=== PATIENT | female | born 1940 | race Caucasian/White ===

== ENCOUNTER 2018-12-09 21:36 | Observation (INO) | payer BC, OTHER ==
[~2018-12-09] VITALS: Ht 162.6 cm; Wt 67.2 kg
--- NOTE | 2018-12-09 21:50 | ED Chest Pain ---
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 States it was across her chest and she had associated diaphoresis. Took 4 baby ASA HOSPITAL HOUSEKEEPER. States her BP @ home was high. Currently states her pain is much better and rates it 2/10 Says she has been having episodes of chest pain the last 2 days, but nothing like tonight. The pain was not similar to any of her previous NH's. Has an extensive cardiac hx including a CABG > 20 years ago @ [facility]. Reports multiple cardiac stents. Timing/Duration: other (just HOSPITAL HOUSEKEEPER; improved now) Severity/Quality: severe, other (describes it like a muscle spasm across her chest) Location: other (across chest) Radiation: no radiation Activities at Onset: none Prior CP/Workup: cardiac cath, echocardiography, heart attack, other (CABG) Modifying Factors: improves with rest, improves with other (ASA) ASA po HOSPITAL HOUSEKEEPER: Yes NTG SL HOSPITAL HOUSEKEEPER: No Associated Symptoms: denies symptoms (x/ as noted.), diaphoresis, fatigue Allergies and Home Medications Allergies Coded Allergies: meperidine (Verified Allergy, Unknown, 12/09/18) Uncoded Allergies: PCN (Allergy, Unknown, 12/09/18) TAPE (Allergy, Unknown, 12/09/18) Patient Home Medication List Home Medication List Reviewed: Yes Review of Systems Review of Systems Constitutional: see HPI, diaphoresis, malaise Cardiovascular: See HPI, Chest Pain All Other Systems Reviewed Negative Unless Noted: Yes (Negative excepted noted.) Past Pgykgoo-Ubqwww-Nagafg Hx Patient Social History Recent Foreign Travel: No Contact w/Someone Who Travel: No Physical Exam Vital Signs Vital Signs - First Documented 12/09/18 21:40 Temp 97.1 Pulse 76 B/P (MAP) 208/84 (125) O2 Delivery Room Air Capillary Refill : Height, Weight, BMI Height: '" Weight: lbs. oz. kg; BMI Method: General Appearance: No Apparent Distress, WD/WN HEENT: Normal ENT Inspection Neck: Normal Inspection Respiratory: No Respiratory Distress Cardiovascular: Regular Rate, Rhythm Rectal: Deferred Neurologic/Psychiatric: Alert, Oriented x3, No Motor/Sensory Deficits Skin: Warm/Dry Progress/Results/Core Measures Results/Orders Lab Results Laboratory Tests Test 12/09/18 21:40 12/09/18 22:04 12/09/18 23:45 Range/Units White Blood Count 10.9 4.3-11.0 10^3/uL Red Blood Count 5.27 4.35-5.85 10^6/uL Hemoglobin 15.9 11.5-16.0 G/DL Hematocrit 47 35-52 % Mean Corpuscular Volume 89 80-99 FL Mean Corpuscular Hemoglobin 30 25-34 PG Mean Corpuscular Hemoglobin Concent 34 32-36 G/DL Red Cell Distribution Width 14.6 H 10.0-14.5 % Platelet Count 254 130-400 10^3/uL Mean Platelet Volume 11.6 H 7.4-10.4 FL Neutrophils (%) (Auto) 63 42-75 % Lymphocytes (%) (Auto) 23 12-44 % Monocytes (%) (Auto) 9 0-12 % Eosinophils (%) (Auto) 4 0-10 % Basophils (%) (Auto) 1 0-10 % Neutrophils # (Auto) 6.9 1.8-7.8 X 10^3 Lymphocytes # (Auto) 2.5 1.0-4.0 X 10^3 Monocytes # (Auto) 1.0 0.0-1.0 X 10^3 Eosinophils # (Auto) 0.5 H 0.0-0.3 10^3/uL Basophils # (Auto) 0.1 0.0-0.1 10^3/uL Sodium Level 138 135-145 MMOL/L Potassium Level 4.1 3.6-5.0 MMOL/L Chloride Level 99 98-107 MMOL/L Carbon Dioxide Level 23 21-32 MMOL/L Anion Gap 16 H 5-14 MMOL/L Blood Urea Nitrogen 13 7-18 MG/DL Creatinine 1.19 0.60-1.30 MG/DL Estimat Glomerular Filtration Rate 44 BUN/Creatinine Ratio 11 Glucose Level 122 H 70-105 MG/DL Calcium Level 10.0 8.5-10.1 MG/DL Corrected Calcium 9.6 8.5-10.1 MG/DL Magnesium Level 2.1 1.8-2.4 MG/DL Total Bilirubin 0.2 0.1-1.0 MG/DL Aspartate Amino Transf (AST/SGOT) 21 5-34 U/L Alanine Aminotransferase (ALT/SGPT) 17 0-55 U/L Alkaline Phosphatase 88 40-136 U/L Troponin T 10 15 H <=10 NG/L Pro-B-Type Natriuretic Peptide 307.9 H <75.0 PG/ML Total Protein 7.7 6.4-8.2 GM/DL Albumin 4.5 3.2-4.5 GM/DL Lipase 79 H 8-78 U/L Urine Color YELLOW Urine Clarity CLEAR Urine pH 6.5 5-9 Urine Specific [place] <1.005 1.016-1.022 Urine Protein NEGATIVE NEGATIVE Urine Glucose (UA) NEGATIVE NEGATIVE Urine Ketones NEGATIVE NEGATIVE Urine Nitrite NEGATIVE NEGATIVE Urine Bilirubin NEGATIVE NEGATIVE Urine Urobilinogen 0.2 NORMAL MG/DL Urine Leukocyte Esterase NEGATIVE NEGATIVE Urine RBC (Auto) NEGATIVE NEGATIVE Urine RBC RARE /HPF Urine WBC 2-5 /HPF Urine Squamous Epithelial Cells 0-2 /HPF Urine Crystals NONE /LPF Urine Bacteria NONE /HPF Urine Casts NONE /LPF Urine Mucus NEGATIVE /LPF Urine Culture Indicated NO My Orders Orders - SHAHBAZ DOS SANTOS DO Ed Iv/Invasive Line Start (12/09/18 21:50) Ekg Tracing (12/09/18 21:50) Cbc With Automated Diff (12/09/18 21:50) Comprehensive Metabolic Panel (12/09/18 21:50) Lipase (12/09/18 21:50) Magnesium (12/09/18 21:50) Ua Culture If Indicated (12/09/18 21:50) Troponin T (12/09/18 21:50) Probnp Fs (12/09/18 21:50) Chest 1 View Ap/Pa Only (12/09/18 21:50) Troponin T (12/09/18 23:30) Nitroglycerin Ointment (Nitrobid Ointme (12/10/18 00:45) Enoxaparin Injection (Lovenox Injection) (12/10/18 00:45) Vital Signs/I&O 12/09/18 12/09/18 21:40 22:04 Temp 97.1 Pulse 76 B/P (MAP) 208/84 (125) 119/81 (94) O2 Delivery Room Air Initial ECG Impression Date: Dec 09, 2018 Initial ECG Impression Time: 21:50 Initial ECG Rate: 69 Initial ECG Rhythm: Normal Sinus Initial ECG Intervals: Normal Initial ECG Impression: Normal Initial ECG Comparisson: No Previous ECG Available Diagnostic Imaging Diagonstic Imaging: Xray Plain Films/CT/US/NM/MRI: chest (nothing acute) Departure Impression Primary Impression: Chest pain Additional Impressions: Elevated troponin Labile hypertension Disposition: ADMITTED INPATIENT Condition: Improved Admissions Decision to Admit Reason: Admit from ER (General) Decision to Admit/Date: Dec 10, 2018 Time/Decision to Admit Time: 00:25 Transfer Time Spoke to Accepting Phy: 00:25 Transfer Progress Notes Discussed c/ Dr. Olguin who requested the patient be admitted to the Hospitalist service c/ him to consult. Dr. Mason notified and accepted the patient in transfer for admission. Transfer Facility: [facility] Method of Transfer: EMS Departure-Patient Inst. Referrals: NO,LOCAL PHYSICIAN (PCP) Primary Care Physician SHAHBAZ DOS SANTOS DO Dec 09, 2018 21:50
--- NOTE | 2018-12-09 21:58 | NUR ---
PT. REPORTED SHE HAS HAD CHEST PAIN FOR A COUPLE OF DAYS. SHE STATED SHE IS TIRED, HAS HAD OPEN HEART SURGERY AND 8 STINTS PLACED SHE ALSO SAID SHE TOOK AN ASA AT HOME.
--- NOTE | 2018-12-09 22:01 | NUR ---
PT. REPORTED SHE USE TO HAVE A GUT DROPPER IN [facility] BUT IF ADMITTED TO THE HOSPITAL SHE WANTS TO GO TO [facility] IN [place].
[2018-12-09 22:02] LABS: BASOPHILS # (AUTO) 0.1 10^3/uL (0.0-0.1); BASOPHILS % (AUTO) 1 % (0-10); EOSINOPHILS # (AUTO) 0.5 10^3/uL (0.0-0.3); EOSINOPHILS % (AUTO) 4 % (0-10); HEMATOCRIT 47 % (35-52); HEMOGLOBIN 15.9 G/DL (11.5-16.0); LYMPHOCYTES # (AUTO) 2.5 X 10^3 (1.0-4.0); LYMPHOCYTES % (AUTO) 23 % (12-44); MEAN CORPUSCULAR HEMOGLOBIN 30 PG (25-34); MEAN CORPUSCULAR HGB CONC 34 G/DL (32-36); MEAN CORPUSCULAR VOLUME 89 FL (80-99); MEAN PLATELET VOLUME 11.6 FL (7.4-10.4); MONOCYTES % (AUTO) 9 % (0-12); NEUTROPHILS # (AUTO) 6.9 X 10^3 (1.8-7.8); NEUTROPHILS % (AUTO) 63 % (42-75); PLATELET COUNT 254 10^3/uL (130-400); RED CELL DISTRIBUTION WIDTH 14.6 % (10.0-14.5); WHITE BLOOD COUNT 10.9 10^3/uL (4.3-11.0)
[2018-12-09 22:04] VITALS: BP 119/81
--- NOTE | 2018-12-09 22:12 | NUR ---
DOCTOR LEVON IN TO SEE THE PATIENT.
[2018-12-09 22:15] LABS: BILIRUBIN,URINE NEGATIVE (NEGATIVE); CLARITY,URINE CLEAR; COLOR,URINE YELLOW; GLUCOSE, URINE (UA) NEGATIVE (NEGATIVE); KETONES,URINE NEGATIVE (NEGATIVE); NITRITE,URINE NEGATIVE (NEGATIVE); PH,URINE 6.5 (5-9); PROTEIN,URINE NEGATIVE (NEGATIVE)
[2018-12-09 22:16] LABS: LEUKOCYTE ESTERASE ,URINE NEGATIVE (NEGATIVE); RBC,URINE RARE /HPF; SQUAMOUS EPITHELIAL CELL,UR 0-2 /HPF; UROBILINOGEN,URINE 0.2 MG/DL (NORMAL)
[2018-12-09 22:16] LABS: BILIRUBIN,TOTAL 0.2 MG/DL (0.1-1.0); CREATININE SERUM 1.19 MG/DL (0.60-1.30); MAGNESIUM 2.1 MG/DL (1.8-2.4); POTASSIUM 4.1 MMOL/L (3.6-5.0)
[2018-12-09 22:17] LABS: ALBUMIN 4.5 GM/DL (3.2-4.5); TOTAL PROTEIN 7.7 GM/DL (6.4-8.2)
--- NOTE | 2018-12-09 23:47 | NUR ---
2ND TROP. SENT TO LAB
[2018-12-10] VITALS (11 sets, daily range): BP systolic 115–185; BP diastolic 58–85
--- NOTE | 2018-12-10 00:19 | Diagnostic Imaging Report ---
INDICATION: Chest pain. Frontal chest obtained at 9:49 p.m. FINDINGS: There is poststernotomy change. The heart is top limits of normal in size. There is no focal infiltrate or pneumothorax or pleural fluid. There is no sign of edema. IMPRESSION: Poststernotomy changes with no acute process in the chest. Dictated by: Dictated on workstation # [id number]
[2018-12-10] MEDS ORDERED: ENOXAPARIN 80 MG/0.8 ML (LOVENOX) SYR SC ONE (00:45)
[2018-12-10] MEDS ORDERED: NITROGLYCERIN 2% OINT 1 GM UNIT DOSE PACKET TOP ONE (00:45)
--- NOTE | 2018-12-10 01:50 | NUR ---
BAY FRANCO admitted to room 408-1, with an admitting diagnosis of CHEST PAIN AND ELEVATED TROPONIN, on 12/10/18 from [facility], accompanied by lance crewmember.BAY FRANCO introduced to surroundings, call light, bed controls, phone, TV, temperature control, lights, meal times, smoking policy, visitor policy, side rail policy, bathrooms and showers.
[2018-12-10] MEDS ORDERED: NITROGLYCERIN 0.4 MG SL TABS BTL 25'S SL PRN (02:30)
[2018-12-10] MEDS ORDERED: morphine INJ 4 MG/ML 1 ML (VIAL/SYRINGE) IV PRN (02:30)
[2018-12-10] MEDS ORDERED: NS IV 1000 ML 1,000 ML IV SCH (02:30)
[2018-12-10] MEDS ORDERED: REGADENOSON 0.4 MG/5 ML SYR (LEXISCAN) IV ONE ×2 (08:30→08:46)
[2018-12-10] MEDS ORDERED: CHOL10007 PO (08:34)
[2018-12-10] MEDS ORDERED: ASPI-983 PO (08:34)
[2018-12-10] MEDS ORDERED: VITA40TA PO (08:34)
[2018-12-10] MEDS ORDERED: MULT1TAB69 PO (08:34)
[2018-12-10] MEDS ORDERED: GREEN DRINK PO (08:34)
--- NOTE | 2018-12-10 08:34 | NUR ---
SPOKE WITH THE PATIENT ABOUT HER MEDICATIONS. SHE STATES SHE IS NOT CURRENTLY TAKING ANY PRESCRIPTION MEDICATIONS AT THIS TIME. SHE WAS TOLD TO TAKE A STATIN BUT AFTER READING ABOUT THEM STOPPED, SHE STATES SHE HAS NOT TAKEN IT FOR THE PAST 3 YEARS OR SO. SHE DOES TAKE THE FOLLOWING OTC: ASPIRIN 81MG DAILY VITAMIN K2 DAILY VITAMIN D DAILY MTV DAILY GREENS DRINK DAILY
[2018-12-10] MEDS ORDERED: CATHETER FLUSH 10 ML SYR IV PRN (08:45)
--- NOTE | 2018-12-10 08:54 | Consultation-Cardiology ---
HPI-Cardiology Cardiology Consultation Date of Consultation 12/10/18 Date of Admission Time Seen by Provider: 08:49 Indication: chest pain HPI 78 years old lady with extensive cardiac history, did not have any checkup for the past 5 years, was in her usual state of health until yesterday evening when she had sudden onset severe chest pain in the retrosternal area, became diaphore tic, was severely hypertensive. Did not have a similar episode recently. Came into the emergency room, given nitroglycerin and she is feeling better. No further episode of chest pain, has been fairly active with no significant chest pain. No palpitation. No syncope or near syncopal episodes. Home Medications & Allergies Allergies: Coded Allergies: meperidine (Verified Allergy, Unknown, 12/09/18) Uncoded Allergies: PCN (Allergy, Unknown, 12/09/18) TAPE (Allergy, Unknown, 12/09/18) Home Medication List Reviewed: Yes VTX-Lrflep-Rvvgmh Hx Patient Social History Marital Status: Employed/Student: retired Alcohol Use: Denies Use Smoking Status: Former Smoker (stopped smoking 25 years ago) Recent Foreign Travel: No Recent Infectious Disease Expo: No Past Medical History discussed below Family Medical History Family History: Alcoholism G8 BROTHER Cardiovascular disease 19 MOTHER FHx: cancer 19 FATHER FHx: lung cancer G8 BROTHER Review of Systems-General Review of Systems Constitutional: see HPI, diaphoresis, malaise EENTM: see HPI, no symptoms reported Respiratory: see HPI; No cough; dyspnea on exertion; No hemoptysis, No orthopnea, No phlegm, No short of breath, No stridor, No wheezing, No other Cardiovascular: No see HPI; chest pain; No edema, No Hx of Intervention, No palpitations, No syncope, No vascular heart diseas, No other Gastrointestinal: no symptoms reported, see HPI Genitourinary: no symptoms reported, see HPI Musculoskeletal: no symptoms reported, see HPI Skin: no symptoms reported, see HPI Psychiatric/Neurological: No Symptoms Reported, See HPI All Other Systems Reviewed Negative Unless Noted: Yes (Negative excepted noted.) Reviewed Test Results Reviewed Test Results Lab Laboratory Tests Test 12/09/18 21:40 12/09/18 22:04 12/09/18 23:45 12/10/18 03:00 Range/Units White Blood Count 10.9 4.3-11.0 10^3/uL Red Blood Count 5.27 4.35-5.85 10^6/uL Hemoglobin 15.9 11.5-16.0 G/DL Hematocrit 47 35-52 % Mean Corpuscular Volume 89 80-99 FL Mean Corpuscular Hemoglobin 30 25-34 PG Mean Corpuscular Hemoglobin Concent 34 32-36 G/DL Red Cell Distribution Width 14.6 H 10.0-14.5 % Platelet Count 254 130-400 10^3/uL Mean Platelet Volume 11.6 H 7.4-10.4 FL Neutrophils (%) (Auto) 63 42-75 % Lymphocytes (%) (Auto) 23 12-44 % Monocytes (%) (Auto) 9 0-12 % Eosinophils (%) (Auto) 4 0-10 % Basophils (%) (Auto) 1 0-10 % Neutrophils # (Auto) 6.9 1.8-7.8 X 10^3 Lymphocytes # (Auto) 2.5 1.0-4.0 X 10^3 Monocytes # (Auto) 1.0 0.0-1.0 X 10^3 Eosinophils # (Auto) 0.5 H 0.0-0.3 10^3/uL Basophils # (Auto) 0.1 0.0-0.1 10^3/uL Sodium Level 138 135-145 MMOL/L Potassium Level 4.1 3.6-5.0 MMOL/L Chloride Level 99 98-107 MMOL/L Carbon Dioxide Level 23 21-32 MMOL/L Anion Gap 16 H 5-14 MMOL/L Blood Urea Nitrogen 13 7-18 MG/DL Creatinine 1.19 0.60-1.30 MG/DL Estimat Glomerular Filtration Rate 44 BUN/Creatinine Ratio 11 Glucose Level 122 H 70-105 MG/DL Calcium Level 10.0 8.5-10.1 MG/DL Corrected Calcium 9.6 8.5-10.1 MG/DL Magnesium Level 2.1 1.8-2.4 MG/DL Total Bilirubin 0.2 0.1-1.0 MG/DL Aspartate Amino Transf (AST/SGOT) 21 5-34 U/L Alanine Aminotransferase (ALT/SGPT) 17 0-55 U/L Alkaline Phosphatase 88 40-136 U/L Troponin T 10 15 H <=10 NG/L Pro-B-Type Natriuretic Peptide 307.9 H <75.0 PG/ML Total Protein 7.7 6.4-8.2 GM/DL Albumin 4.5 3.2-4.5 GM/DL Lipase 79 H 8-78 U/L Urine Color YELLOW Urine Clarity CLEAR Urine pH 6.5 5-9 Urine Specific [place] <1.005 1.016-1.022 Urine Protein NEGATIVE NEGATIVE Urine Glucose (UA) NEGATIVE NEGATIVE Urine Ketones NEGATIVE NEGATIVE Urine Nitrite NEGATIVE NEGATIVE Urine Bilirubin NEGATIVE NEGATIVE Urine Urobilinogen 0.2 NORMAL MG/DL Urine Leukocyte Esterase NEGATIVE NEGATIVE Urine RBC (Auto) NEGATIVE NEGATIVE Urine RBC RARE /HPF Urine WBC 2-5 /HPF Urine Squamous Epithelial Cells 0-2 /HPF Urine Crystals NONE /LPF Urine Bacteria NONE /HPF Urine Casts NONE /LPF Urine Mucus NEGATIVE /LPF Urine Culture Indicated NO Troponin I 0.032 H <0.028 NG/ML Physical Exam Physical Exam Vital Signs Vital Signs - First Documented 12/09/18 12/10/18 21:40 00:32 Temp 97.1 Pulse 76 Resp 18 B/P (MAP) 208/84 (125) Pulse Ox 97 O2 Delivery Room Air O2 Flow Rate 2.00 Capillary Refill : Less Than 3 Seconds Height, Weight, BMI Height: 5'4.00" Weight: 148lbs. 3.0oz. 67.329234ip; BMI Method:Stated General Appearance: No Apparent Distress, WD/WN HEENT: TMs Normal, Normal ENT Inspection Neck: Full Range of Motion, Normal Inspection Respiratory: Chest Non Tender, Lungs Clear, No Respiratory Distress Cardiovascular: Regular Rate, Rhythm, No Murmur, Normal Peripheral Pulses, Gal lop/S3 Gastrointestinal: Normal Bowel Sounds, No Organomegaly Rectal: Deferred Back: Normal Inspection Extremity: Normal Capillary Refill, Normal Inspection Neurologic/Psychiatric: Alert, Oriented x3, No Motor/Sensory Deficits Skin: Normal Color, Warm/Dry Lymphatic: No Adenopathy A/P-Cardiology Admission Diagnosis Unstable angina Coronary artery disease Hypertension Hyperlipidemia Assessment/Plan Unstable angina, better at this time, cardiac enzymes are negative. EKG did not show any acute changes. Planning to evaluate stress test. Coronary artery disease history of CABG 3 done 25 years ago, multiple interventions in the past reporting a total of 8 stents, last cardiac cat heterization was done about 5 years ago and was complicated by a large retroperitoneal bleed, patient is hesitant to have any procedure done especially from the right groin. No recent cardiac workup, planning to evaluate stress test. Next Hypertension, had an episode of elevated blood pressure over 200 while she was having the chest pain at home, currently blood pressure is better. Continue to monitor blood pressure Hyperlipidemia, monitor lipids. History of peripheral arterial disease, reporting history of aortic stent and iliac stents done in the remote past. No recent workup was done. Clinical Quality Measures AMI/AHF: ASA po Prior to arrival: Yes DVT/VTE Risk/Contraindication: Risk Factor Score Per Nursin RFS Level Per Nursing on Admit: 2=Moderate Other: SEE INTERVENTIONS JESSE KHANNA MD Dec 10, 2018 08:54
[2018-12-10] MEDS ORDERED: ASPIRIN E.C. 81 MG (ECOTRIN) TAB PO SCH (09:00)
--- NOTE | 2018-12-10 15:00 | History & Physical-Hospitalist ---
History of Present Illness HPI/Chief Complaint The patient is a 78-year-old white female who was transferred down from the [facility] emergency room. She had presented there with the onset of significant chest pain all sitting at rest. She described this chest pain as anterior without radiation to the arms. She has a long cardiac history going back at least 25 years. 25 years ago she had emergent coronary bypass surgery and repair of an arterial aneurysm. She had a 2 phase complication following the surgery which included a hemopneumothorax. Through the subsequent years she has had EIGHT more stents. She reported that during the period of chest pain she also had diaphoresis. She took aspirin at home and by the time she reached the emergency room rated her pain has only mild. Date Seen 12/10/18 Time Seen by a Provider: 15:00 Attending Physician Neville Lewis MD PCP No,Local Physician Referring Physician Date of Admission Dec 10, 2018 at 00:33 Home Medications & Allergies Home Medications Reviewed patient Home Medication Reconciliation performed by pharmacy medication reconciliations operator technician and/or nursing. Patients Allergies have been reviewed. Allergies Allergies Coded Allergies meperidine (Verified Allergy, Unknown, 12/09/18) Uncoded Allergies PCN ( Allergy, Unknown, 12/09/18) TAPE ( Allergy, Unknown, 12/09/18) Past Nahscwn-Lnqeiv-Esdlri Hx Past Med/Social Hx: Reviewed Nursing Past Med/Soc Hx Patient Social History Marrital Status: Employed/Student: retired Alcohol Use: Denies Use Smoking Status: Former Smoker (stopped smoking 25 years ago) Recent Foreign Travel: No Contact w/other who traveled: No Recent Infectious Disease Expo: No Past Medical History : No Family History Alcoholism G8 BROTHER Cardiovascular disease 19 MOTHER FHx: cancer 19 FATHER FHx: lung cancer G8 BROTHER Review of Systems Constitutional: see HPI EENTM: no symptoms reported Respiratory: no symptoms reported Cardiovascular: see HPI, chest pain Gastrointestinal: no symptoms reported Genitourinary: no symptoms reported Musculoskeletal: no symptoms reported Skin: no symptoms reported Psychiatric/Neurological: No Symptoms Reported Physical Exam Physical Exam Vital Signs Vital Signs - First Documented 12/09/18 12/10/18 21:40 00:32 Temp 97.1 Pulse 76 Resp 18 B/P (MAP) 208/84 (125) Pulse Ox 97 O2 Delivery Room Air O2 Flow Rate 2.00 Capillary Refill : Less Than 3 Seconds Height, Weight, BMI Height: 5'4.00" Weight: 148lbs. 3.0oz. 67.043387ld; BMI Method:Stated General Appearance: No Apparent Distress, Other (appears somewhat younger than stated age) Eyes: Bilateral Eye Normal Inspection HEENT: Normal ENT Inspection Respiratory: Chest Non Tender, Lungs Clear, Normal Breath Sounds, No Accessory Muscle Use, No Respiratory Distress Cardiovascular: Regular Rate, Rhythm, No Edema, No Gallop, Other (sternotomy scar noted) Gastrointestinal: Normal Bowel Sounds, No Organomegaly, No Pulsatile Mass Back: Normal Inspection Extremity: Normal Capillary Refill, Normal Inspection, Normal Range of Motion, Non Tender, No Calf Tenderness, No Pedal Edema Neurologic/Psychiatric: Alert, Oriented x3, No Motor/Sensory Deficits, Normal Mood/Affect Skin: Normal Color, Warm/Dry Lymphatic: No Adenopathy Results Results/Procedures Labs Laboratory Tests 12/09/18 21:40 Patient resulted labs reviewed. Assessment/Plan Admission Diagnosis 1. Chest pain consistent with angina pectoris. 2.long history of coronary artery disease with previous coronary bypass grafting, repair of aneurysm, and 8 percutaneous stents Clinical Quality Measures AMI/AHF: ASA po Prior to arrival: Yes DVT/VTE Risk/Contraindication: Risk Factor Score Per Nursin RFS Level Per Nursing on Admit: 2=Moderate Other: SEE INTERVENTIONS NEVILLE LEWIS MD Dec 10, 2018 15:00
[2018-12-10] MEDS ORDERED: ATOR10TA PO (15:17)
[2018-12-10] MEDS ORDERED: METO-351 PO (15:17)
--- NOTE | 2018-12-10 17:04 | STRESS TEST ---
DATE OF SERVICE: 12/10/2018 LEXISCAN MYOVIEW STRESS TEST REFERRING PHYSICIAN: Neville Mason MD Baseline heart rate is 65, baseline blood pressure 130/70. Baseline EKG is sinus rhythm with no ischemic changes. In summary, the patient was injected with 9.93 mCi of technetium-99 Myoview and the resting images were obtained. Then, the patient received 0.4 mg of Lexiscan followed by 29.4 mCi of technetium-99 Myoview. Throughout the test, there were no EKG changes. The resting and stress images were reviewed and compared in the short axis, horizontal long axis and vertical long axis views. Review of the images showed motion artifact affecting the quality of the images. There is fixed defect involving the whole inferior wall and inferolateral wall with no significant reversibility. SSS is 20, SDS is 3, TID value 1.1. On the gated images, the left ventricle appeared to be in normal size with normal contractility. There is no segmental wall motion abnormality. Inferior wall is eric normally. Calculated ejection fraction 73%. CONCLUSION: 1. The patient tolerated Lexiscan well. 2. Diaphragmatic attenuation affecting the quality of the images with motion artifact with fixed defect involving the whole inferior wall and inferoseptum with no significant reversibility. 3. Normal left ventricular size with normal contractility. The inferior wall is eric normally. Calculated ejection fraction 73%. Job ID: [id number] DocumentID: [id number] Dictated Date: 12/10/2018 16:48:47 Internal Medicine Veterinary Technician Date: 12/10/2018 17:03:22 Dictated By: JESSE KHANNA MD
== END 2018-12-10 16:30 | disposition home or self-care (01) ==
LOC: ER FS 21:37 → 4TH 12-10 00:33
PROVIDERS: ADMIT Internal Medicine; ATTEND Internal Medicine
DX: I25.110 Atherosclerotic heart disease of native coronary artery with unstable angina pectoris (principal); I10 Essential (primary) hypertension; E78.5 Hyperlipidemia, unspecified; I25.2 Old myocardial infarction; Z87.891 Personal history of nicotine dependence; Z95.1 Presence of aortocoronary bypass graft; Z95.5 Presence of coronary angioplasty implant and graft; Z95.820 Peripheral vascular angioplasty status with implants and grafts; Z79.82 Long term (current) use of aspirin; Z79.899 Other long term (current) drug therapy
CPT/HCPCS: 36415; 71045; 78452; 80053; 81000; 83690; 83735; 83880; 84484; 85025; 93005; 93017; 96372; G0378

== ENCOUNTER 2018-12-11 10:02 | Observation (INO) | payer BC, MEDICARE ==
[~2018-12-11] VITALS: Ht 162.6 cm; Wt 67.3 kg
[2018-12-11] VITALS (7 sets, daily range): BP systolic 114–144; BP diastolic 65–89
[~2018-12-11 10:02] MED LIST: ASPI-983 PO; ATOR10TA PO; CHOL10007 PO; GREEN DRINK PO; METO-351 PO; MULT1TAB69 PO; VITA40TA PO
[2018-12-11] MEDS ORDERED: morphine INJ 10 MG/ML 1ML (SYR OR VIAL) IVP STA ×2 (10:07→10:41)
[2018-12-11] MEDS ORDERED: ASPIRIN 81 MG CHEW (CHILDREN'S ASA) PO ONE (10:15)
[2018-12-11] MEDS: NITROGLYCERIN 0.4 MG SL TABS BTL 25'S SL PRN ×2 (10:17→10:37)
[2018-12-11 10:22] LABS: HEMOGLOBIN 17.2 G/DL (11.5-16.0); MEAN CORPUSCULAR HEMOGLOBIN 30 PG (25-34)
[2018-12-11 10:23] LABS: BASOPHILS # (AUTO) 0.1 10^3/uL (0.0-0.1); BASOPHILS % (AUTO) 1 % (0-10); EOSINOPHILS # (AUTO) 0.4 10^3/uL (0.0-0.3); EOSINOPHILS % (AUTO) 4 % (0-10); HEMATOCRIT 50 % (35-52); LYMPHOCYTES # (AUTO) 3.4 X 10^3 (1.0-4.0); LYMPHOCYTES % (AUTO) 28 % (12-44); MEAN CORPUSCULAR HGB CONC 35 G/DL (32-36); MEAN CORPUSCULAR VOLUME 88 FL (80-99); MEAN PLATELET VOLUME 11.7 FL (7.4-10.4); MONOCYTES # (AUTO) 1.2 X 10^3 (0.0-1.0); MONOCYTES % (AUTO) 10 % (0-12); NEUTROPHILS # (AUTO) 6.9 X 10^3 (1.8-7.8); NEUTROPHILS % (AUTO) 58 % (42-75); PLATELET COUNT 274 10^3/uL (130-400)
--- NOTE | 2018-12-11 10:25 | ED Chest Pain ---
General Chief Complaint: Chest Pain Stated Complaint: CHEST PAIN Nursing Triage Note: started having severe chest pain prior to arrival. Pain is on left and right side of chest and radiates to back. Patient is crying and states it is rated at 10/10. Hx of triple bypass and LA approx 20 years ago. Nursing Sepsis Screen: No Definite Risk History of Present Illness Date Seen by Provider: Dec 11, 2018 Time Seen by Provider: 10:00 Initial Comments The patient is a 78-year-old female with a history of hypertension, hyperlipidemia and coronary artery disease status post CABG in the remote past. She was actually seen here and transferred to [facility] yesterday for chest discomfort which had resolved by the time of presentation to the emergency department. She did have a stress test that was nonischemic and was ruled out with serial troponins. Unfortunately today she returns with acute onset of severe pressure-like substernal chest discomfort which she states involves her entire chest and radiates straight through to the back. She is rolling on the examination bed in significant discomfort and crying. Vital signs are generally appropriate aside from hypertension with a systolic of 180 and tachycardia to 110s. Patient states discomfort started 30 minutes prior to arrival and gradually worsened and that nothing seems to make it better or worse. As noted, she is in quite severe distress. She reports associated shortness of breath. She denies vomiting, diaphoresis, cough, abdominal pain. Initial EKG reviewed and does not show STEMI. Allergies and Home Medications Allergies Coded Allergies: meperidine (Verified Allergy, Unknown, 12/09/18) Uncoded Allergies: PCN (Allergy, Unknown, 12/09/18) TAPE (Allergy, Unknown, 12/09/18) Home Medications Aspirin 81 Mg Tablet.dr, 81 MG PO DAILY, (Reported) Atorvastatin Calcium 10 Mg Tablet, 10 MG PO DAILY Prescribed by: JESSE KHANNA on 12/10/18 151 Cholecalciferol (Vitamin D3) 1,000 Unit Capsule, 1,000 UNIT PO DAILY, (Reported) Metoprolol Succinate 25 Mg Tab.er.24h, 25 MG PO DAILY Prescribed by: JESSE KHANNA on 12/10/18 151 Multivitamin 1 Each Tablet, 1 TAB PO DAILY, (Reported) Patient Home Medication List Home Medication List Reviewed: Yes Review of Systems Review of Systems Constitutional: see HPI All Other Systems Reviewed Negative Unless Noted: Yes Past Slxndgv-Vuafcf-Lnqfyf Hx Past Med/Social Hx: Reviewed Nursing Past Med/Soc Hx Patient Social History Recent Foreign Travel: No Contact w/Someone Who Travel: No Recent Infectious Disease Expo: No Family Medical History Reviewed Nursing Family Hx Alcoholism G8 BROTHER Cardiovascular disease 19 MOTHER FHx: cancer 19 FATHER FHx: lung cancer G8 BROTHER Physical Exam Vital Signs Vital Signs - First Documented 12/11/18 12/11/18 10:03 10:05 Temp 98.6 Pulse 109 Resp 26 B/P (MAP) 116/91 (99) Pulse Ox 98 O2 Delivery Nasal Cannula O2 Flow Rate 2.0 Capillary Refill : Less Than 3 Seconds Height, Weight, BMI Height: 5'4.00" Weight: 150lbs. 3.0oz. [id number]; BMI Method:Stated General Appearance: No Apparent Distress Other comments This is an elderly female appearing to be in some distress although nontoxic in appearance. She is tearful and moaning on the examination bed, complaining about pain in her chest. Head is normocephalic and atraumatic. Neck is supple and nontender. Oropharynx is moist. Lungs are clear to auscultation at all stations. There is a normal S1 and S2 without rubs or gallops and capillary refills appropriate, less than 2 seconds globally. Bilateral upper and lower peripheral pulses are 2+ and symmetric. Abdomen is soft, nontender and nondistended and without pulsatile mass. Skin is warm and dry without cyanosis, clubbing or edema. Psychiatrically, the patient demonstrates appropriate mood and affect and is alert. Progress/Results/Core Measures Results/Orders Lab Results Laboratory Tests Test 12/11/18 10:05 Range/Units White Blood Count 12.0 H 4.3-11.0 10^3/uL Red Blood Count 5.64 4.35-5.85 10^6/uL Hemoglobin 17.2 H 11.5-16.0 G/DL Hematocrit 50 35-52 % Mean Corpuscular Volume 88 80-99 FL Mean Corpuscular Hemoglobin 30 25-34 PG Mean Corpuscular Hemoglobin Concent 35 32-36 G/DL Red Cell Distribution Width 15.0 H 10.0-14.5 % Platelet Count 274 130-400 10^3/uL Mean Platelet Volume 11.7 H 7.4-10.4 FL Neutrophils (%) (Auto) 58 42-75 % Lymphocytes (%) (Auto) 28 12-44 % Monocytes (%) (Auto) 10 0-12 % Eosinophils (%) (Auto) 4 0-10 % Basophils (%) (Auto) 1 0-10 % Neutrophils # (Auto) 6.9 1.8-7.8 X 10^3 Lymphocytes # (Auto) 3.4 1.0-4.0 X 10^3 Monocytes # (Auto) 1.2 H 0.0-1.0 X 10^3 Eosinophils # (Auto) 0.4 H 0.0-0.3 10^3/uL Basophils # (Auto) 0.1 0.0-0.1 10^3/uL Prothrombin Time 12.7 12.2-14.7 SEC INR Comment 0.9 0.8-1.4 Activated Partial Thromboplast Time 30 24-35 SEC Sodium Level 141 135-145 MMOL/L Potassium Level 4.3 3.6-5.0 MMOL/L Chloride Level 100 98-107 MMOL/L Carbon Dioxide Level 24 21-32 MMOL/L Anion Gap 17 H 5-14 MMOL/L Blood Urea Nitrogen 11 7-18 MG/DL Creatinine 1.06 0.60-1.30 MG/DL Estimat Glomerular Filtration Rate 50 BUN/Creatinine Ratio 10 Glucose Level 127 H 70-105 MG/DL Calcium Level 9.8 8.5-10.1 MG/DL Corrected Calcium 8.5-10.1 MG/DL Total Bilirubin 0.4 0.1-1.0 MG/DL Aspartate Amino Transf (AST/SGOT) 25 5-34 U/L Alanine Aminotransferase (ALT/SGPT) 16 0-55 U/L Alkaline Phosphatase 95 40-136 U/L Troponin T 9 <=10 NG/L Pro-B-Type Natriuretic Peptide 625.9 H <75.0 PG/ML Total Protein 8.5 H 6.4-8.2 GM/DL Albumin 4.8 H 3.2-4.5 GM/DL My Orders Orders - CAROLYNN WAGNER MD Cbc With Automated Diff (12/11/18 10:07) Comprehensive Metabolic Panel (12/11/18 10:07) Troponin T (12/11/18 10:07) Ekg Tracing (12/11/18 10:07) Probnp Fs (12/11/18 10:07) Protime With Inr (12/11/18 10:07) Partial Thromboplastin Time (12/11/18 10:07) Ct Angio Chest W (12/11/18 10:07) Morphine Injection (Morphine Injection (12/11/18 10:07) Nitroglycerin 0.4 Mg Btl 25's (Nitrostat (12/11/18 10:15) Aspirin Chewable Tablet (Baby Aspirin Ch (12/11/18 10:15) Iohexol Injection (Omnipaque 350 Mg/Ml 1 (12/11/18 10:30) Received Contrast (Hold Metformin- Contr (12/11/18 10:30) Sodium Chloride Flush (Catheter Flush Sy (12/11/18 10:30) Ns (Ivpb) (Sodium Chloride 0.9% Ivpb Bag (12/11/18 10:30) Metoprolol Tartrate Injection (Lopressor (12/11/18 10:45) Morphine Injection (Morphine Injection (12/11/18 10:41) Metoprolol Tartrate Injection (Lopressor (12/11/18 10:38) Heparin Drip Acs (12/11/18 11:10) Heparin Acs Bolus 60 Units/Kg (12/11/18 11:10) Medications Given in ED Current Medications Medications Dose Ordered Sig/Dell Route Start Time Stop Time Status Last Admin Dose Admin Aspirin 324 mg ONCE ONCE PO 12/11/18 10:15 12/11/18 10:16 DC 12/11/18 10:18 324 MG Iohexol 125 ml ONCE ONCE IV 12/11/18 10:30 12/11/18 10:31 DC 12/11/18 10:45 125 ML Nitroglycerin 1 TAB Q 5 MIN X 3 NEEDED PRN SL 12/11/18 10:15 12/11/18 10:37 0.4 MG Sodium Chloride 10 ml NEEDED PRN IV 12/11/18 10:30 12/11/18 10:45 10 ML Sodium Chloride 100 ml ONCE ONCE IV 12/11/18 10:30 12/11/18 10:31 DC 12/11/18 10:45 100 ML Vital Signs/I&O 12/11/18 12/11/18 10:03 10:05 Temp 98.6 Pulse 109 Resp 26 B/P (MAP) 116/91 (99) Pulse Ox 98 O2 Delivery Nasal Cannula O2 Flow Rate 2.0 Blood Pressure Mean: 99 Progress Progress Note : Time: 10:23 Progress Note Clinical exam is quite concerning for ACS versus dissection. Initial EKG without evidence of STEMI. We'll check labs and stat CT angiography of the chest and give aspirin and nitroglycerin and morphine and will then reevaluate. Case is discussed with Dr. Khanna of [facility] cardiology who agrees with transfer back to that facility for catheterization if CT angiography is unremarkable for evidence of dissection. Update 1113: Workup generally unremarkable and reassuring including CT angiography of the chest. Dr. Mason graciously accepts for cardiac stepdown admission. We will go ahead and start heparin. EKG : Comment Sinus tachycardia, rate 101, no acute ST elevation or depression, some degree of artifact limits the study, NM 168, QRS 117, QTC 484, EP interpretation. Diagnostic Imaging Comments CT ANGIO CHEST W PROCEDURE: CT angiography of the chest with contrast. TECHNIQUE: Multiple contiguous axial images were obtained through the chest after uneventful bolus administration of intravenous contrast. 2D reconstructed CTA MIP acquisitions were also performed. Auto Exposure Controls were utilized during the CT exam to meet ALARA standards for radiation dose reduction. INDICATION: Sudden onset of chest pain and shortness of breath. No prior studies are available for comparison. FINDINGS: The thoracic aorta is heavily calcified but nonaneurysmal. No dissection is identified. Pulmonary arterial system is without thromboembolism. No filling defects are seen within central, lobar or segmental branches. No pericardial or pleural fluid is detected. Parenchymal evaluation does show centrilobular emphysematous changes throughout both lungs. There is some atelectasis or scarring in the right lower lobe. No masses are seen. Upper abdomen is unremarkable. IMPRESSION: 1. No evidence of pulmonary embolism or thoracic aortic dissection. 2. Emphysematous changes with right lower lobe atelectasis or scarring. Dictated on workstation # [id number] Departure Impression Primary Impression: Chest pain Qualified Codes: R07.89 - Other chest pain Disposition: 02 XFER SHT-TRM HOSP Condition: Improved Departure-Patient Inst. Referrals: NO,LOCAL PHYSICIAN (PCP/Family) Primary Care Physician CAROLYNN WAGNER MD Dec 11, 2018 10:24
[2018-12-11] MEDS ORDERED: HOLD METFORMIN - RECEIVED CONTRAST 20 ML VIAL IV SCH (10:30)
[2018-12-11] MEDS ORDERED: IOHEXOL 350 MG/ML 150 ML (OMNIPAQUE 350) VIAL IV ONE (10:30)
[2018-12-11] MEDS ORDERED: CATHETER FLUSH 10 ML SYR IV PRN ×2 (10:30→13:30)
[2018-12-11] MEDS ORDERED: NS 100 ML (IVPB) BAG IV ONE (10:30)
[2018-12-11] MEDS ORDERED: meTOprolol 5 MG/5 ML (LOPRESSOR) VIAL ONE (10:38)
[2018-12-11 10:40] LABS: INR 0.9 (0.8-1.4); PROTHROMBIN TIME PATIENT 12.7 SEC (12.2-14.7)
[2018-12-11 10:43] LABS: BUN/CREATININE RATIO 10; CARBON DIOXIDE 24 MMOL/L (21-32); CHLORIDE 100 MMOL/L (98-107); CREATININE SERUM 1.06 MG/DL (0.60-1.30); GFR ESTIMATED 50; GLUCOSE 127 MG/DL (70-105); POTASSIUM 4.3 MMOL/L (3.6-5.0); SODIUM 141 MMOL/L (135-145)
[2018-12-11 10:44] LABS: ALANINE AMINOTRANSFERASE 16 U/L (0-55); ALBUMIN 4.8 GM/DL (3.2-4.5); ALKALINE PHOSPHATASE 95 U/L (40-136); BILIRUBIN,TOTAL 0.4 MG/DL (0.1-1.0); CALCIUM 9.8 MG/DL (8.5-10.1); TOTAL PROTEIN 8.5 GM/DL (6.4-8.2)
[2018-12-11] MEDS ORDERED: meTOprolol 5 MG/5 ML (LOPRESSOR) VIAL IV ONE (10:45)
--- NOTE | 2018-12-11 11:01 | Diagnostic Imaging Report ---
PROCEDURE: CT angiography of the chest with contrast. TECHNIQUE: Multiple contiguous axial images were obtained through the chest after uneventful bolus administration of intravenous contrast. 2D reconstructed CTA MIP acquisitions were also performed. Auto Exposure Controls were utilized during the CT exam to meet ALARA standards for radiation dose reduction. INDICATION: Sudden onset of chest pain and shortness of breath. No prior studies are available for comparison. FINDINGS: The thoracic aorta is heavily calcified but nonaneurysmal. No dissection is identified. Pulmonary arterial system is without thromboembolism. No filling defects are seen within central, lobar or segmental branches. No pericardial or pleural fluid is detected. Parenchymal evaluation does show centrilobular emphysematous changes throughout both lungs. There is some atelectasis or scarring in the right lower lobe. No masses are seen. Upper abdomen is unremarkable. IMPRESSION: 1. No evidence of pulmonary embolism or thoracic aortic dissection. 2. Emphysematous changes with right lower lobe atelectasis or scarring. Dictated by: Dictated on workstation # [id number]
[2018-12-11] MEDS ORDERED: HEParin 1000 UNIT/ML (10ML VIAL) FOR BOLUS IV ONE (11:10)
[2018-12-11] MEDS ORDERED: HEParin DRIP 25000 UNIT/500ML 500 ML IV ONE (11:10)
[2018-12-11] MEDS ORDERED: NS IV 1000 ML 1,000 ML IV SCH (11:42)
--- NOTE | 2018-12-11 12:11 | NUR ---
patient transferred at this time to via [facility] room CU3 via [facility] em[facility].
--- NOTE | 2018-12-11 13:00 | NUR ---
BAY FRANCO admitted to room CU3-1, with an admitting diagnosis of CP, on 12/11/18 from [facility] via [facility], accompanied by EMS.BAY FRANCO introduced to surroundings, call light, bed controls, phone, TV, temperature control, lights, meal times, smoking policy, visitor policy, side rail policy, bathrooms and showers. Patient Rights given to patient in the handbook. BAY FRANCO verbalizes understanding that [facility] is not responsible for the loss or damage to any personal effects or valuables that are kept in the patients posession during their hospitalization. The following Patient Care Plans were discussed with the PT: Discharge Planning, PAIN,ANXIETY, and KNOWLEDGE DEFICIT. BAY FRANCO verbalizes understanding of Interdisciplinary Patient Education. Patient and family were informed about the Rapid Response Team and its purpose.
[2018-12-11] MEDS ORDERED: LIDOCAINE 1% INJ 20 ML 20 ML VIAL ONE (13:26)
[2018-12-11] MEDS ORDERED: HEParin (CATH LAB) 2,000 ML IV ONE (13:26)
--- NOTE | 2018-12-11 13:37 | NUR ---
SPOKE WITH THE PATIENT ABOUT HER MEDICATIONS. 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 SHE STATES LAST NIGHT SHE WAS HAVING SOME DISCOMFORT SO SHE TOOK 1/2 TAB OF HER METOPROLOL LAST NIGHT AND THE OTHER 1/2 TAB THIS MORNING. SHE PLANS TO TAKE 1 WHOLE TABLET DAILY FROM NOW ON.
[2018-12-11] MEDS ORDERED: CATHETER FLUSH 10 ML SYR IV SCH (14:00)
--- NOTE | 2018-12-11 14:02 | NUR ---
PT LEFT VIA BED W/ CARD TAPE CONVERTER OPERATOR STAFF.
[2018-12-11] MEDS ORDERED: fentaNYL INJECTION 100 MCG/2 ML AMP ONE (14:06)
[2018-12-11] MEDS ORDERED: MIDAZOLAM 5 MG/5 ML (VERSED) VIAL ONE (14:06)
--- NOTE | 2018-12-11 14:09 | Consultation-Cardiology ---
HPI-Cardiology Cardiology Consultation Date of Consultation 12/11/18 Date of Admission Time Seen by Provider: 14:06 Indication: chest pain HPI 78 years old lady with extensive cardiac history, was discharged yesterday, was doing well last night, reported having mild chest discomfort done this morning has significant chest pain when she was doing her house chores. Came into the e mergency room with severe retrosternal chest pain, nitroglycerin did not have significant improvement with her pain, reporting improvement after morphine. Patient had a stress test done yesterday which showed fixed defect involving the whole inferior wall. Home Medications & Allergies Allergies: Coded Allergies: meperidine (Verified Allergy, Unknown, 12/09/18) Uncoded Allergies: PCN (Allergy, Unknown, 12/09/18) TAPE (Allergy, Unknown, 12/09/18) Home Medication List Reviewed: Yes YVG-Mkageb-Demwwm Hx Patient Social History Marital Status: Employed/Student: retired Alcohol Use: Denies Use Recreational Drug Use: No Smoking Status: Former Smoker 2nd Hand Smoke Exposure: No Recent Foreign Travel: No Recent Infectious Disease Expo: No Recent Hopitalizations: Yes ([facility] for chest pain 12/10) Past Medical History noncontributory to her current condition Family Medical History Family History: Alcoholism G8 BROTHER Cardiovascular disease 19 MOTHER FHx: cancer 19 FATHER FHx: lung cancer G8 BROTHER Review of Systems-General Review of Systems Constitutional: see HPI, diaphoresis, malaise EENTM: see HPI, no symptoms reported Respiratory: see HPI, dyspnea on exertion Cardiovascular: see HPI, chest pain; No edema, No Hx of Intervention, No palpitations, No syncope, No vascular heart diseas, No other Gastrointestinal: no symptoms reported, see HPI Genitourinary: no symptoms reported, see HPI Musculoskeletal: no symptoms reported, see HPI Skin: no symptoms reported, see HPI Psychiatric/Neurological: No Symptoms Reported, See HPI All Other Systems Reviewed Negative Unless Noted: Yes Physical Exam Physical Exam Vital Signs Vital Signs - First Documented 12/11/18 12/11/18 10:03 10:05 Temp 98.6 Pulse 109 Resp 26 B/P (MAP) 116/91 (99) Pulse Ox 98 O2 Delivery Nasal Cannula O2 Flow Rate 2.0 Capillary Refill : Less Than 3 Seconds Height, Weight, BMI Height: 5'4.00" Weight: 148lbs. 5.0oz. [id number]; 25.5 BMI Method:Stated General Appearance: No Apparent Distress Eyes: Bilateral Eye Normal Inspection, Bilateral Eye PERRL, Bilateral Eye EOMI HEENT: PERRL/EOMI, TMs Normal, Normal ENT Inspection, Pharynx Normal, Moist Mucous Membranes Neck: Full Range of Motion, Normal Inspection, Non Tender, Supple, Carotid Bruit Respiratory: Chest Non Tender, Normal Breath Sounds, No Accessory Muscle Use, No Respiratory Distress Cardiovascular: Regular Rate, Rhythm, No Edema, No Gallop, No JVD, Normal Peripheral Pulses, Systolic Murmur Gastrointestinal: Normal Bowel Sounds, No Organomegaly, No Pulsatile Mass, Non Tender, Soft Back: Normal Inspection, No CVA Tenderness, No Vertebral Tenderness Extremity: Normal Capillary Refill, Normal Inspection, Normal Range of Motion, Non Tender, No Calf Tenderness, No Pedal Edema Neurologic/Psychiatric: Alert, Oriented x3, No Motor/Sensory Deficits, Normal Mood/Affect Skin: Normal Color, Warm/Dry Lymphatic: No Adenopathy A/P-Cardiology Admission Diagnosis Unstable angina Coronary artery disease Hypertension Hyperlipidemia Assessment/Plan Unstable angina, had a stress test yesterday showing fixed defect involving the whole inferior wall, patient is very hesitant to have a cardiac catheterization done, she has complications with retroperitoneal bleed. Discussed the management plan, she is having significant pain at this point and I recommended proceeding with cardiac catheterization. Patient agreed on the procedure, understanding all risks and benefits. Coronary artery disease history of CABG 3 done 25 years ago, multiple interventions in the past reporting a total of 8 stents, last cardiac catheterization was done about 5 years ago and was complicated by a large retroperitoneal bleed, patient is hesitant to have any procedure done especially from the right groin. stress test showed fixed defect involving the whole inferolateral wall. Planning for cardiac catheterization Hypertension, medication were restarted. Continue to monitor blood pressure Hyperlipidemia, patient was started on statin yesterday. Continue to monitor History of peripheral arterial disease, reporting history of aortic stent and iliac stents done in the remote past. No recent workup was done. Clinical Quality Measures AMI/AHF: ASA po Prior to arrival: No DVT/VTE Risk/Contraindication: Risk Factor Score Per Nursin RFS Level Per Nursing on Admit: 2=Moderate JESSE KHANNA MD Dec 11, 2018 14:09
--- NOTE | 2018-12-11 14:10 | Cardiac Procedure Note-CS/ASA ---
Pre-Procedure Note Pre-Op Procedure Note H&P Reviewed The H&P was reviewed, patient examined and no changes noted. Date H&P Reviewed: Dec 11, 2018 Time H&P Reviewed: 14:10 Conscious Sedation Pre-Proced Time 14:10 ASA Score 3 For ASA 3 and 4: Consider anesthesia and medical clearance. Also, for patients with a history of failed moderate sedation consider anesthesia. Airway Lungs Heart ASA score ASA 1: a normal healthy patient ASA 2: a patient with a mild systemic disease (mid diabetes, controlled hypertension, obesity x ASA 3: a patient with a severe systemic disease that limits activity (angina, COPD, prior Myocardial infarction) ASA 4: a patient with an incapacitating disease that is a constant threat to life (CHF, renal failure) ASA 5: a moribund patient not expected to survive 24 hrs. (ruptured aneurysm) ASA 6: a declared brain- patient whose organs are being harvested. For emergent operations, add the letter E after the classification Mallampati Classification Grade 3 Sedation Plan Analgesia, Amnesia, Plan communicated to team members, Discussed options with patient/fam, Discussed risks with patient/fam The patient is an appropriate candidate to undergo the planned procedure, sedation, and anesthesia. The patient immediately re-assessed prior to indication. JESSE KHANNA MD Dec 11, 2018 14:10
[2018-12-11] MEDS ORDERED: PATIENT MAY USE OWN MEDS, ALL PO SCH (15:00)
--- NOTE | 2018-12-11 15:09 | Cardiac Cath Report ---
Cardiac Cath Report Physician (s)/End Lathe Operator (s) Physician JESSE KHANNA MD Pre-Procedure Diagnosis Pre-Procedure Diagnosis: coronary artery disease Post-Procedure Note Procedure Start Date: Dec 11, 2018 Name of Procedure: Left heart catheterization Left ventricular gram Vein graft angiogram Aortic arch angiogram Findings/Procedure Note PROCEDURE NOTE: 78 years old lady with extensive cardiac history, had history of CABG [address] Licea about 25 years ago, had multiple intervention multiple stents in the past. She was admitted yesterday with chest pain, stress test showed fixed defect at the inferior wall, no significant ischemia was noted, she was discharged home, returned with active chest pain. Decided to proceed with cardiac catheterization. After explaining the procedure to the patient, all pros and cons were explained, all questions were answered. The patient signed the consent and then she was placed on the cardiac catheterization laboratory. Groin was prepped SL fashion local anesthesia was used. Sheath placed in the left femoral artery. Wolf right and left catheter were used to access the coronary system. Pigtail was used to access the left ventricular cavity, vein graft angiogram was done. Left ventriculogram was done Aortic arch angiogram was done At the end of the procedure the sheath was removed. manual pressure applied FINDINGS: Hemodynamics LV 139/18, end-diastolic pressure of 18 Aorta 135/69 mean of 92 ANATOMY: Left Main is absent. To have separate ostium, the LAD is occluded Left Anterior Descending is occluded, there is a vein graft to the mid LAD and vein graft to the diagonal artery, both graft as severe disease disease as described below Left Circumflex is moderate in size with mild disease nonobstructive disease Right Coronory Artery is occluded, the vein graft to the right coronary artery is severely diseased LV Gram was done showing normal left ventricular size and systolic function estimated ejection fraction 60 percent Aorta evaluation showed heavily calcified aortic arch, no dissection or aneurysm, origin of the innominate artery and left carotid artery was visualized, appear to be calcified with no obstructive disease. Vein graft angiogram: Vein graft the LAD has severe stenosis at its proximal portion. Good flow distally Vein graft to the diagonal artery has multiple stent with severe stenosis within the stent, severe stenosis at the anastomosis point with sluggish flow Vein graft to the right coronary artery has multiple segment of moderate to severe stenosis at the midportion with sluggish flow CONCLUSION: 1. Severe multivessel coronary artery disease with extensive bad river band coronary artery disease. 2. Occluded LAD proximally, vein graft to the LAD has severe stenosis proximally, vein graft to the diagonal artery has multiple stents with multiple area of severe stenosis in the mid and distal portion, subtotal occlusion at the anastomosis point with sluggish flow in that vein graft. 3. Occluded right coronary artery with vein graft to the right coronary artery with multiple stent and multiple area of severe stenosis and sluggish flow in t hat graft 4. Circumflex artery is moderate in size with mild disease nonobstructive disease 5. Normal left ventricular size and systolic function estimated ejection fraction 60 percent, elevated left ventricular end-diastolic pressure 6. Heavily calcified aortic arch. No dissection or aneurysm. Normal origin of the great vessels of the neck DISCUSSION AND RECOMMENDATION: Patient had extensive coronary artery disease multiple stenosis in the vein graft, multiple stents in the past. It is achievable to do high risk intervention with protection from embolization to the vein graft to the circumflex and right coronary artery and probably primary stenting the vein graft to the LAD. Discussed with Dr. Hitesh Pal, patient will be referred for evaluation for possible redo bypass surgery versus high risk multivessel intervention. Hospital Course: Patient was admitted, she was on heparin drip which was held. Procedure was carried out as described above, patient would be [facility] to [facility] for evaluation for redo bypass surgery versus high risk intervention. Anesthesia Type: Conscious Sedation Estimated blood loss (mL): 30 ml Contrast Amount: 81 ml Total Radiation Dose: 421 mGy Post-Procedure Diagnosis Post-operative diagnosis: unstable angina Coronary artery disease Hypertension Hyperlipidemia JESSE KHANNA MD Dec 11, 2018 15:09
--- NOTE | 2018-12-11 15:20 | NUR ---
PT BACK TO [facility] VIA BED W/ OFFICE CORRESPONDENT STAFF. PT HAS 6 FR RIGHT GROIN SHEATH-WNL. TRANSFER TO [facility]END[facility]. Addendum: 12/11/18 at 1541 by RINA BROWN RN CORRECTION---PLEASE NOTE, 6 [place] LEFT GROIN SHEATH.
[2018-12-11] MEDS ORDERED: HEParin (CATH LAB) 1,000 ML IV ONE (15:24)
[2018-12-11] MEDS: NS IV 1000 ML 1,000 ML IV SCH ×2 (15:39→17:52)
[2018-12-11] MEDS ORDERED: fentaNYL INJECTION 100 MCG/2 ML AMP IVP ONE (16:45)
--- NOTE | 2018-12-11 16:55 | NUR ---
UNABLE TO PULL SHEATH PTT LEVEL IS 81, BOTH [facility] AND DR KHANNA INFORMED. ADVISED BY DR KHANNA TO RECHECK PTT IN 1 HR. PT TO TRANSFER AFTER SHEATH IS PULLED.
[2018-12-11] MEDS ORDERED: ATROPINE INJ 0.4 MG/ML SDV ONE (17:52)
--- NOTE | 2018-12-11 18:36 | NUR ---
REPORT CALLED TO ANABEL GILL AT [facility]. NO QUESTIONS/CONCERNS VOICED.
--- NOTE | 2018-12-11 19:08 | NUR ---
REPORT GIVEN TO RAQUEL GILL WHO ASSUMES CARE OF PT. [facility] ROUTE.
--- NOTE | 2018-12-11 19:18 | NUR ---
[facility] HERE TO TRANSPORT PT. PERSONAL BELONGINGS SENT W/ FAMILY. NO QUESTIONS/CONCERNS VOICED.
--- NOTE | 2018-12-11 19:51 | NUR ---
Notified Salima Guajardo of critical troponin of 0.666.
[2018-12-12] MEDS ORDERED: MULTIVIT W/MINERALS TAB (THERAGRAN M) PO SCH (07:00)
[2018-12-12] MEDS ORDERED: ASPIRIN E.C. 81 MG (ECOTRIN) TAB PO SCH (09:00)
[2018-12-12] MEDS ORDERED: NON-FORMULARY MEDICATION 1 EA EA (Metoprolol Succinate (Toprol Xl) 25 MG) PO SCH (09:00)
[2018-12-12] MEDS ORDERED: ATORVASTATIN 10 MG (LIPITOR) TABLET PO SCH (09:00)
== END 2018-12-11 19:18 | disposition short-term general hospital (02) ==
LOC: EDUNIT# 10:02 → ER FS 10:03 → ICU 11:25
PROVIDERS: ADMIT Internal Medicine; ATTEND Internal Medicine
DX: I25.119 Atherosclerotic heart disease of native coronary artery with unspecified angina pectoris (principal); I10 Essential (primary) hypertension; E78.5 Hyperlipidemia, unspecified; Z87.891 Personal history of nicotine dependence; Z95.1 Presence of aortocoronary bypass graft; Z95.5 Presence of coronary angioplasty implant and graft; Z79.82 Long term (current) use of aspirin; Z79.899 Other long term (current) drug therapy
CPT/HCPCS: 36221; 36415; 71275; 80053; 83880; 84484; 85025; 85347; 85610; 85730; 87081; 93005; 93459; 96365; 96375

== ENCOUNTER → 2019-04-08 | Outpatient (CLI) | payer BC ==
[2019-04-08 11:59] LABS: HEMATOCRIT 38 % (35-52); HEMOGLOBIN 12.3 G/DL (11.5-16.0); MEAN CORPUSCULAR HEMOGLOBIN 30 PG (25-34); WHITE BLOOD COUNT 6.7 10^3/uL (4.3-11.0)
[2019-04-08 12:00] LABS: BASOPHILS % (AUTO) 1 % (0-10); EOSINOPHILS # (AUTO) 0.2 10^3/uL (0.0-0.3); EOSINOPHILS % (AUTO) 3 % (0-10); LYMPHOCYTES # (AUTO) 1.6 X 10^3 (1.0-4.0); LYMPHOCYTES % (AUTO) 24 % (12-44); MEAN CORPUSCULAR HGB CONC 33 G/DL (32-36); MEAN CORPUSCULAR VOLUME 92 FL (80-99); MONOCYTES # (AUTO) 0.7 X 10^3 (0.0-1.0); MONOCYTES % (AUTO) 11 % (0-12); NEUTROPHILS # (AUTO) 4.1 X 10^3 (1.8-7.8); NEUTROPHILS % (AUTO) 62 % (42-75); PLATELET COUNT 223 10^3/uL (130-400); RED CELL DISTRIBUTION WIDTH 15.9 % (10.0-14.5)
[2019-04-08 12:26] LABS: ALBUMIN 4.1 GM/DL (3.2-4.5); BILIRUBIN,TOTAL 0.4 MG/DL (0.1-1.0); CALCIUM 8.9 MG/DL (8.5-10.1); CREATININE SERUM 0.93 MG/DL (0.60-1.30); POTASSIUM 4.7 MMOL/L (3.6-5.0); TOTAL PROTEIN 6.6 GM/DL (6.4-8.2)
== END ==
LOC: LAB FS 11:18
PROVIDERS: ATTEND Internal Medicine Cardiovascular Disease
DX: I25.10 Atherosclerotic heart disease of native coronary artery without angina pectoris (principal); I10 Essential (primary) hypertension; E78.2 Mixed hyperlipidemia
CPT/HCPCS: 36415; 80053; 80061; 83036; 84443; 85025

== ENCOUNTER → 2020-03-28 | Outpatient (CLI) | payer BC ==
[~2020-03-28] MED LIST changes: +ASPI-1238 PO; -ASPI-983 PO; +MULT-567 PO; -MULT1TAB69 PO
[2020-03-28 12:52] LABS: POTASSIUM 4.6 MMOL/L (3.6-5.0)
[2020-03-28 12:53] LABS: ALBUMIN 4.1 GM/DL (3.2-4.5); BILIRUBIN,TOTAL 0.4 MG/DL (0.1-1.0); CALCIUM 9.2 MG/DL (8.5-10.1); CREATININE SERUM 1.25 MG/DL (0.60-1.30); TOTAL PROTEIN 6.3 GM/DL (6.4-8.2)
== END ==
LOC: LAB FS 10:45
PROVIDERS: ATTEND Internal Medicine Cardiovascular Disease
DX: I25.10 Atherosclerotic heart disease of native coronary artery without angina pectoris (principal); I10 Essential (primary) hypertension; E78.2 Mixed hyperlipidemia; I73.9 Peripheral vascular disease, unspecified
CPT/HCPCS: 36415; 80053; 80061

== ENCOUNTER → 2020-04-18 | Outpatient (CLI) | payer BC ==
[~2020-04-18] MED LIST changes: +CATHETER FLUSH 10 ML SYR IV PRN; +HOLD METFORMIN - RECEIVED CONTRAST 20 ML VIAL IV SCH; +IOHEXOL 350 MG/ML 100 ML (OMNIPAQUE 350) VIAL IV ONE; +NS 100 ML (IVPB) BAG IV ONE
[2020-04-18 13:58] LABS: CREATININE SERUM 1.02 MG/DL (0.60-1.30)
--- NOTE | 2020-04-18 15:59 | Diagnostic Imaging Report ---
EXAM: CT ANGIO NECK W INDICATION: Atherosclerosis. TECHNIQUE: All CT scans use one or more of the following dose optimizing techniques: automated exposure control, MA and/or KvP adjustment based on patient size and exam type or iterative reconstruction. COMPARISON: None. FINDINGS: CTA demonstrates a conventional aortic arch. Advanced atherosclerotic calcifications. This results in 50 to 69% narrowing of the right internal carotid artery origin. There is less than 50% narrowing of the left internal carotid artery origin. Retropharyngeal course of the right carotid artery. The bilateral vertebral arteries are widely patent. The visualized [place] of [place] is unremarkable. The visualized dural venous sinuses are normally opacified. Emphysematous changes in the lung apices. Partially visualized sternotomy. No acute osseous findings. Mild spondylotic changes in the cervical spine are greatest at C5-C6 where there is minimal retrolisthesis. Mild mucosal thickening in the right maxillary sinus. Mastoids are clear. IMPRESSION: 1. 50 to 69% narrowing of the right internal carotid artery origin. 2. There is less than 50% narrowing of the left ICA origin. 3. Advanced atherosclerotic calcifications result in no other high-grade arterial narrowing. Dictated by: Dictated on workstation # [id number]
== END ==
LOC: RAD FS 13:15
PROVIDERS: ATTEND Internal Medicine Cardiovascular Disease
DX: I65.23 Occlusion and stenosis of bilateral carotid arteries (principal)
CPT/HCPCS: 36415; 70498; 82565; 84520

== ENCOUNTER 2020-05-10 00:53 | Emergency (ER) | payer BC ==
[~2020-05-10] VITALS: Ht 162.6 cm; Wt 59.4 kg
[~2020-05-10 00:53] MED LIST changes: -CATHETER FLUSH 10 ML SYR IV PRN; -HOLD METFORMIN - RECEIVED CONTRAST 20 ML VIAL IV SCH; -IOHEXOL 350 MG/ML 100 ML (OMNIPAQUE 350) VIAL IV ONE; -NS 100 ML (IVPB) BAG IV ONE
[2020-05-10] MEDS ORDERED: NS IV 1000 ML 1,000 ML IV STA (01:02)
--- NOTE | 2020-05-10 01:02 | ED Abdominal Pain ---
General Chief Complaint: Abdominal/GI Problems Stated Complaint: N/V/D Source of Information: Patient Exam Limitations: No Limitations History of Present Illness Date Seen by Provider: May 10, 2020 Time Seen by Provider: 01:02 Initial Comments 80-year-old female presents with some mild abdominal cramping, diarrhea that started around 3 AM yesterday. Didn't develop some nausea and vomiting around 8 PM. She denies any eufemia abdominal pain. She denies cough, fever, chills. She does report she felt little clammy. Patient denies any cough or upper respiratory symptoms. Patient reports she's had a cholecystectomy, appendectomy and a hysterectomy. Allergies and Home Medications Allergies Coded Allergies: meperidine (Verified Allergy, Unknown, 12/09/18) Uncoded Allergies: PCN (Allergy, Unknown, 12/09/18) TAPE (Allergy, Unknown, 12/09/18) Home Medications Aspirin 81 Mg Tablet.dr, 81 MG PO DAILY, (Reported) Atorvastatin Calcium 10 Mg Tablet, 10 MG PO DAILY Prescribed by: JESSE KHANNA on 12/10/18 151 Cholecalciferol (Vitamin D3) 1,000 Unit Capsule, 1,000 UNIT PO DAILY, (Reported) Metoprolol Succinate 25 Mg Tab.er.24h, 25 MG PO DAILY Prescribed by: JESSE KHANNA on 12/10/18 151 Multivitamin 1 Each Tablet, 1 TAB PO DAILY, (Reported) Patient Home Medication List Home Medication List Reviewed: Yes Review of Systems Review of Systems Constitutional: No chills, No fever; malaise EENTM: No Symptoms Reported Respiratory: Denies Cough, Denies Shortness of Air Cardiovascular: Denies Chest Pain, Denies Lightheadedness, Denies Palpitations Gastrointestinal: Abdominal Pain, Diarrhea, Nausea, Vomiting Genitourinary: No Symptoms Reported Musculoskeletal: no symptoms reported Skin: no symptoms reported Psychiatric/Neurological: No Symptoms Reported Endocrine: No Symptoms Reported Hematologic/Lymphatic: No Symptoms Reported Past Jsjeowo-Izuwgm-Iecqlg Hx Past Med/Social Hx: Reviewed Nursing Past Med/Soc Hx Patient Social History 2nd Hand Smoke Exposure: No Recent Foreign Travel: No Contact w/Someone Who Travel: No Recent Hopitalizations: Yes (via [facility] for chest pain 12/10) Seasonal Allergies Seasonal Allergies: No Past Medical History Surgeries: Yes (3 vessel cabg) CABG, Hysterectomy Cardiac: Yes (3 vessel CABG) Heart Attack, High Cholesterol Integumentary: No Family Medical History Alcoholism G8 BROTHER Cardiovascular disease 19 MOTHER FHx: cancer 19 FATHER FHx: lung cancer G8 BROTHER Physical Exam Vital Signs Vital Signs - First Documented 05/10/20 00:59 Temp 35.8 Pulse 65 Resp 17 B/P (MAP) 139/64 (89) O2 Delivery Room Air Capillary Refill : Height/Weight/BMI Height: 5'4.00" Weight: 148lbs. 5.0oz. 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, no motor/sensory deficits, alert, normal mood/affect, oriented x 3 Skin: normal color, warm/dry Focused Exam Lactate Level 05/10/20 01:37: Lactic Acid Level 1.38 Lactic Acid Level Laboratory Tests Test 05/10/20 01:37 Lactic Acid Level 1.38 MMOL/L (0.50-2.00) Progress/Results/Core Measures Results/Orders Lab Results Laboratory Tests Test 05/10/20 01:13 05/10/20 01:37 05/10/20 01:55 Range/Units White Blood Count 7.7 4.3-11.0 10^3/uL Red Blood Count 4.09 L 4.35-5.85 10^6/uL Hemoglobin 13.6 11.5-16.0 G/DL Hematocrit 40 35-52 % Mean Corpuscular Volume 97 80-99 FL Mean Corpuscular Hemoglobin 33 25-34 PG Mean Corpuscular Hemoglobin Concent 34 32-36 G/DL Red Cell Distribution Width 14.1 10.0-14.5 % Platelet Count 223 130-400 10^3/uL Mean Platelet Volume 10.9 H 7.4-10.4 FL Sodium Level 132 L 135-145 MMOL/L Potassium Level 4.1 3.6-5.0 MMOL/L Chloride Level 99 98-107 MMOL/L Carbon Dioxide Level 24 21-32 MMOL/L Anion Gap 9 5-14 MMOL/L Blood Urea Nitrogen 7 7-18 MG/DL Creatinine 0.79 0.60-1.30 MG/DL Estimat Glomerular Filtration Rate > 60 BUN/Creatinine Ratio 9 Glucose Level 118 H 70-105 MG/DL Calcium Level 8.9 8.5-10.1 MG/DL Corrected Calcium 8.8 8.5-10.1 MG/DL Total Bilirubin 0.5 0.1-1.0 MG/DL Aspartate Amino Transf (AST/SGOT) 18 5-34 U/L Alanine Aminotransferase (ALT/SGPT) 14 0-55 U/L Alkaline Phosphatase 58 40-136 U/L Total Protein 6.3 L 6.4-8.2 GM/DL Albumin 4.1 3.2-4.5 GM/DL Lactic Acid Level 1.38 0.50-2.00 MMOL/L Micro Results Microbiology 05/10/20 Influenza Types A,B Antigen (LONNIE) - Final, Complete My Orders Orders - LIAM MARIEE DO Comprehensive Metabolic Panel (05/10/20 01:02) Ua Culture If Indicated (05/10/20 01:02) Ed Iv/Invasive Line Start (05/10/20 01:02) Acute Abd Series (05/10/20 01:02) Cbc No Diff (05/10/20 01:02) Lactic Acid Analyzer (05/10/20 01:02) Influenza A And B Antigens (05/10/20 01:02) Ondansetron Injection (Zofran Injectio (05/10/20 01:15) Ns Iv 1000 Ml (Sodium Chloride 0.9%) (05/10/20 01:02) Medications Given in ED Current Medications Medications Dose Ordered Sig/Dell Route Start Time Stop Time Status Last Admin Dose Admin Ondansetron HCl 4 mg ONCE ONCE IVP 05/10/20 01:15 05/10/20 01:16 DC 05/10/20 01:17 4 MG Vital Signs/I&O 05/10/20 00:59 Temp 35.8 Pulse 65 Resp 17 B/P (MAP) 139/64 (89) O2 Delivery Room Air Progress Progress Note : Time: 02:05 Progress Note Patient with a normal white count mild low sodium otherwise normal CMP, normal lactic. Patient's feeling significantly better following her Zofran. She has, nonspecific abdominal x-ray. Patient was offered CT if she felt further evaluation was needed. She states that she saw a lot better, would like to go home and will return if symptoms worsen. She'll be discharged home with some Zofran, clear liquid diet to advance as tolerated. She should follow-up with her primary care provider as needed or return to the ER symptoms severely worsen Diagnostic Imaging Diagonstic Imaging: Xray Plain Films/CT/US/NM/MRI: abdomen Comments Nonspecific bowel gas Reviewed: Reviewed by Me Departure Impression Primary Impression: Viral gastroenteritis Disposition: HOME, SELF-CARE Condition: Stable Departure-Patient Inst. Referrals: ALVARO BRITTON DO (PCP/Family) Primary Care Physician Patient Instructions: [place] Diet, CLEAR LIQUID DIET ADULT/CHILD, Viral Gastroenteritis Add. Discharge Instructions: Clear liquid diet, bland diet and advance as tolerated All discharge instructions reviewed with patient and/or family. Voiced understanding. Scripts Ondansetron (Ondansetron Odt) 4 Mg Tab.rapdis 4 MG PO Q6H PRN for NAUSEA/VOMITING, #20 TAB 0 Refills Prov: LIAM MARIEE DO 05/10/20 LIAM MARIEE DO May 10, 2020 01:02
[2020-05-10] MEDS ORDERED: ONDANSETRON 4 MG/2 ML (SDV) Z0FRAN IVP ONE (01:15)
[2020-05-10 01:28] LABS: HEMOGLOBIN 13.6 G/DL (11.5-16.0); MEAN PLATELET VOLUME 10.9 FL (7.4-10.4); WHITE BLOOD COUNT 7.7 10^3/uL (4.3-11.0)
[2020-05-10 01:41] LABS: CHLORIDE 99 MMOL/L (98-107); POTASSIUM 4.1 MMOL/L (3.6-5.0); SODIUM 132 MMOL/L (135-145)
[2020-05-10 01:42] LABS: ALANINE AMINOTRANSFERASE 14 U/L (0-55); ALBUMIN 4.1 GM/DL (3.2-4.5); ALKALINE PHOSPHATASE 58 U/L (40-136); BILIRUBIN,TOTAL 0.5 MG/DL (0.1-1.0); BUN/CREATININE RATIO 9; CALCIUM 8.9 MG/DL (8.5-10.1); CARBON DIOXIDE 24 MMOL/L (21-32); CREATININE SERUM 0.79 MG/DL (0.60-1.30); GFR ESTIMATED > 60; GLUCOSE 118 MG/DL (70-105); TOTAL PROTEIN 6.3 GM/DL (6.4-8.2)
[2020-05-10] MEDS ORDERED: ONDA4TAB11 PO (02:07)
[2020-05-10] MEDS ORDERED: RX-ONDANSETRON 4 MG ODT (ZOFRAN) PPK #4 PO STA (02:08)
[2020-05-10 02:09] LABS: BACTERIA,URINE LARGE /HPF; BILIRUBIN,URINE NEGATIVE (NEGATIVE); CLARITY,URINE CLEAR; COLOR,URINE YELLOW; GLUCOSE, URINE (UA) NEGATIVE (NEGATIVE); KETONES,URINE NEGATIVE (NEGATIVE); LEUKOCYTE ESTERASE ,URINE 1+ (NEGATIVE); NITRITE,URINE NEGATIVE (NEGATIVE); PROTEIN,URINE NEGATIVE (NEGATIVE); SQUAMOUS EPITHELIAL CELL,UR 0-2 /HPF
[2020-05-10 02:16] VITALS: BP 134/71
--- NOTE | 2020-05-10 06:09 | Diagnostic Imaging Report ---
EXAMINATION: Acute abdomen series at 1:25 AM INDICATION: Nausea and vomiting The accompanying erect AP chest shows the heart size to be within normal limits and stable when compared to 12/09/2018. The sternotomy wires and surgical clips noted previously are again evident and no different. The lungs remain clear. There is no sign of failure, pneumonia or a pleural effusion. There is no pneumoperitoneum identified. Supine and erect views of the abdomen were obtained. There is gas in both the large and small bowel in a nonspecific fashion. There is no evidence for a bowel obstruction. There is no mass or organomegaly appreciated. The osseous structures are intact. Surgical clips are visualized in the right upper quadrant. IMPRESSION: The bowel gas pattern is nonspecific. There is no acute abnormality noted. Dictated by: Dictated on workstation # [id number]
== END 2020-05-10 02:16 | disposition home or self-care (01) ==
LOC: EDUNIT# 00:53 → ER FS 00:55
DX: A08.4 Viral intestinal infection, unspecified (principal); I25.2 Old myocardial infarction; E78.00 Pure hypercholesterolemia, unspecified; Z80.1 Family history of malignant neoplasm of trachea, bronchus and lung; Z82.49 Family history of ischemic heart disease and other diseases of the circulatory system; Z88.0 Allergy status to penicillin; Z88.5 Allergy status to narcotic agent; Z95.1 Presence of aortocoronary bypass graft; Z79.82 Long term (current) use of aspirin
CPT/HCPCS: 36415; 74022; 80053; 81000; 83605; 85027; 87088; 87804

== ENCOUNTER → 2020-09-28 | Outpatient (CLI) | payer BC ==
[~2020-09-28] MED LIST changes: +ONDA4TAB11 PO
== END ==
LOC: CARD 12:00
PROVIDERS: ATTEND Internal Medicine Cardiovascular Disease
DX: I11.9 Hypertensive heart disease without heart failure (principal)
CPT/HCPCS: 93306

== ENCOUNTER 2020-12-13 01:58 | Emergency (ER) | payer BC ==
[2020-12-13] MEDS ORDERED: PROMETHAZINE INJ 25 MG/ML (PHENERGAN) AMP IVP STA (02:05)
[2020-12-13] MEDS ORDERED: FAMOTIDINE 20MG/2ML IV (PEPCID) IV STA (02:05)
--- NOTE | 2020-12-13 02:05 | ED GI ---
General Stated Complaint: N/V History of Present Illness Date Seen by Provider: Dec 13, 2020 Time Seen by Provider: 02:05 Initial Comments 80-year-old female presents with some generalized weakness, nausea and vomiting that she reports started earlier in the evening. Patient denies any fevers, chills, abdominal pain. Patient reports that she has had a similar episode in the past. Patient was given 1 L of IV fluids and 8 of Zofran in route by EMS. Patient still has some mild nausea. She denies chest pain, cough or other s ystemic complaints Allergies and Home Medications Allergies Coded Allergies: meperidine (Verified Allergy, Unknown, 12/09/18) Uncoded Allergies: PCN (Allergy, Unknown, 12/09/18) TAPE (Allergy, Unknown, 12/09/18) Home Medications Aspirin 81 Mg Tablet.dr, 81 MG PO DAILY, (Reported) Atorvastatin Calcium 10 Mg Tablet, 10 MG PO DAILY Prescribed by: JESSE KHANNA on 12/10/18 1517 Cholecalciferol (Vitamin D3) 1,000 Unit Capsule, 1,000 UNIT PO DAILY, (Reported) Metoprolol Succinate 25 Mg Tab.er.24h, 25 MG PO DAILY Prescribed by: JESSE KHANNA on 12/10/18 1517 Multivitamin 1 Each Tablet, 1 TAB PO DAILY, (Reported) Ondansetron 4 Mg Tab.rapdis, 4 MG PO Q6H PRN for NAUSEA/VOMITING Prescribed by: LIAM MARIEE on 12/13/20 0339 Patient Home Medication List Home Medication List Reviewed: Yes Review of Systems Review of Systems Constitutional: No chills, No fever; weakness Respiratory: Denies Cough, Denies Shortness of Air Cardiovascular: Denies Chest Pain, Denies Lightheadedness Gastrointestinal: Denies Abdomen Distended; Nausea, Vomiting Genitourinary: No Symptoms Reported Musculoskeletal: no symptoms reported Skin: no symptoms reported Psychiatric/Neurological: No Symptoms Reported Endocrine: No Symptoms Reported Hematologic/Lymphatic: No Symptoms Reported Past Dpogrse-Uxjkxy-Oeelud Hx Patient Social History Type Used: Cigarettes 2nd Hand Smoke Exposure: No Recent Hopitalizations: Yes (via [facility] chest pain 12/10) Seasonal Allergies Seasonal Allergies: No Past Medical History Surgeries: Yes (3 vessel cabg) CABG, Hysterectomy Cardiac: Yes (3 vessel CABG) Heart Attack, High Cholesterol Integumentary: No Family Medical History Alcoholism G8 BROTHER Cardiovascular disease 19 MOTHER FHx: cancer 19 FATHER FHx: lung cancer G8 BROTHER Physical Exam Vital Signs Vital Signs - First Documented 12/13/20 02:00 Temp 35.6 Pulse 68 Resp 16 B/P (MAP) 175/88 (117) Pulse Ox 95 O2 Delivery Room Air Capillary Refill : Height/Weight/BMI Height: 5'4.00" Weight: 148lbs. 5.0oz. 67.620315wg; 22.00 BMI Method:Stated General Appearance: mild distress HEENT: PERRL/EOMI Neck: supple, normal inspection Respiratory: lungs clear, normal breath sounds Cardiovascular: normal peripheral pulses, regular rate, rhythm Gastrointestinal: non tender, soft Back: no CVA tenderness Neurologic/Psychiatric: alert, oriented x 3 Skin: normal color Progress/Results/Core Measures Results/Orders Lab Results Laboratory Tests Test 12/13/20 02:05 12/13/20 03:07 Range/Units White Blood Count 9.2 4.3-11.0 10^3/uL Red Blood Count 4.06 L 4.35-5.85 10^6/uL Hemoglobin 13.6 11.5-16.0 G/DL Hematocrit 40 35-52 % Mean Corpuscular Volume 99 80-99 FL Mean Corpuscular Hemoglobin 34 25-34 PG Mean Corpuscular Hemoglobin Concent 34 32-36 G/DL Red Cell Distribution Width 13.2 10.0-14.5 % Platelet Count 187 130-400 10^3/uL Mean Platelet Volume 11.9 H 7.4-10.4 FL Immature Granulocyte % (Auto) 0 % Neutrophils (%) (Auto) 83 H 42-75 % Lymphocytes (%) (Auto) 13 12-44 % Monocytes (%) (Auto) 4 0-12 % Eosinophils (%) (Auto) 1 0-10 % Basophils (%) (Auto) 0 0-10 % Neutrophils # (Auto) 7.6 1.8-7.8 X 10^3 Lymphocytes # (Auto) 1.2 1.0-4.0 X 10^3 Monocytes # (Auto) 0.4 0.0-1.0 X 10^3 Eosinophils # (Auto) 0.1 0.0-0.3 10^3/uL Basophils # (Auto) 0.0 0.0-0.1 10^3/uL Immature Granulocyte # (Auto) 0.0 0.0-0.1 10^3/uL Sodium Level 133 L 135-145 MMOL/L Potassium Level 4.1 3.6-5.0 MMOL/L Chloride Level 101 98-107 MMOL/L Carbon Dioxide Level 23 21-32 MMOL/L Anion Gap 9 5-14 MMOL/L Blood Urea Nitrogen 11 7-18 MG/DL Creatinine 0.75 0.60-1.30 MG/DL Estimat Glomerular Filtration Rate > 60 BUN/Creatinine Ratio 15 Glucose Level 147 H 70-105 MG/DL Calcium Level 8.5 8.5-10.1 MG/DL Corrected Calcium 8.3 L 8.5-10.1 MG/DL Total Bilirubin 0.4 0.1-1.0 MG/DL Aspartate Amino Transf (AST/SGOT) 21 5-34 U/L Alanine Aminotransferase (ALT/SGPT) 18 0-55 U/L Alkaline Phosphatase 78 40-136 U/L Troponin I < 0.30 <0.30 NG/ML Total Protein 6.8 6.4-8.2 GM/DL Albumin 4.2 3.2-4.5 GM/DL Lipase 40 8-78 U/L Urine Color YELLOW Urine Clarity CLEAR Urine pH 7.0 5-9 Urine Specific [place] 1.020 1.016-1.022 Urine Protein NEGATIVE NEGATIVE Urine Glucose (UA) NEGATIVE NEGATIVE Urine Ketones NEGATIVE NEGATIVE Urine Nitrite NEGATIVE NEGATIVE Urine Bilirubin NEGATIVE NEGATIVE Urine Urobilinogen 0.2 < = 1.0 MG/DL Urine Leukocyte Esterase NEGATIVE NEGATIVE Urine RBC (Auto) NEGATIVE NEGATIVE Urine RBC 0-2 /HPF Urine WBC RARE /HPF Urine Squamous Epithelial Cells RARE /HPF Urine Crystals NONE /LPF Urine Bacteria TRACE /HPF Urine Casts NONE /LPF Urine Mucus SMALL H /LPF Urine Culture Indicated NO My Orders Orders - MARIEE,LIAM L DO Cbc With Automated Diff (12/13/20 02:05) Comprehensive Metabolic Panel (12/13/20 02:05) Lipase (12/13/20 02:05) Ua Culture If Indicated (12/13/20 02:05) Troponin I Fs (12/13/20 02:05) Promethazine Injection (Phenergan Injec (12/13/20 02:05) Famotidine Injection (Pepcid Injection) (12/13/20 02:05) Acute Abd Series (12/13/20 02:05) Ekg Tracing (12/13/20 02:11) Monitor-Rhythm Ecg Trace Only (12/13/20 02:11) Ed Iv/Invasive Line Start (12/13/20 02:20) Vital Signs/I&O 12/13/20 12/13/20 02:00 03:43 Temp 35.6 Pulse 68 67 Resp 16 18 B/P (MAP) 175/88 (117) 147/75 Pulse Ox 95 96 O2 Delivery Room Air Room Air Progress Progress Note : Progress Note Patient is feeling much better, patient's lab and x-ray are stable and showed no acute findings. Patient will be discharged home. She start clear liquid diet, advance as tolerated. Follow-up with her primary care provider as needed Initial ECG Impression Date: Dec 13, 2020 Initial ECG Impression Time: 02:12 Initial ECG Rate: 70 Initial ECG Rhythm: Normal Sinus Comment HR 70, sinus, RBBB, no acute findings Diagnostic Imaging Diagonstic Imaging: Xray Plain Films/CT/US/NM/MRI: chest, abdomen Comments No acute findings Reviewed: Reviewed by Me Departure Impression Primary Impression: Nausea and vomiting Qualified Codes: R11.2 - Nausea with vomiting, unspecified Disposition: 01 HOME, SELF-CARE Condition: Stable Departure-Patient Inst. Referrals: ALVARO BRITTON DO (PCP/Family) Primary Care Physician Patient Instructions: CLEAR LIQUID DIET ADULT/CHILD, Nausea and Vomiting, Adult Add. Discharge Instructions: Clear liquid diet, advance as tolerated Scripts Ondansetron (Ondansetron Odt) 4 Mg Tab.rapdis 4 MG PO Q6H PRN for NAUSEA/VOMITING, #20 TAB 0 Refills Prov: MARIEE,LIAM L DO 12/13/20 MARIEE,LIAM L DO Dec 13, 2020 02:05
[2020-12-13 02:45] LABS: HEMATOCRIT 40 % (35-52); HEMOGLOBIN 13.6 G/DL (11.5-16.0); MEAN CORPUSCULAR HEMOGLOBIN 34 PG (25-34); MEAN CORPUSCULAR HGB CONC 34 G/DL (32-36); MEAN CORPUSCULAR VOLUME 99 FL (80-99); PLATELET COUNT 187 10^3/uL (130-400); WHITE BLOOD COUNT 9.2 10^3/uL (4.3-11.0)
[2020-12-13 02:46] LABS: BASOPHILS % (AUTO) 0 % (0-10); EOSINOPHILS # (AUTO) 0.1 10^3/uL (0.0-0.3); EOSINOPHILS % (AUTO) 1 % (0-10); LYMPHOCYTES # (AUTO) 1.2 X 10^3 (1.0-4.0); LYMPHOCYTES % (AUTO) 13 % (12-44); MEAN PLATELET VOLUME 11.9 FL (7.4-10.4); MONOCYTES # (AUTO) 0.4 X 10^3 (0.0-1.0); MONOCYTES % (AUTO) 4 % (0-12); NEUTROPHILS # (AUTO) 7.6 X 10^3 (1.8-7.8); NEUTROPHILS % (AUTO) 83 % (42-75)
[2020-12-13 02:52] LABS: CARBON DIOXIDE 23 MMOL/L (21-32); CHLORIDE 101 MMOL/L (98-107); POTASSIUM 4.1 MMOL/L (3.6-5.0); SODIUM 133 MMOL/L (135-145)
[2020-12-13 02:53] LABS: CALCIUM 8.5 MG/DL (8.5-10.1)
[2020-12-13 02:54] LABS: BILIRUBIN,TOTAL 0.4 MG/DL (0.1-1.0); LIPASE 40 U/L (8-78); TOTAL PROTEIN 6.8 GM/DL (6.4-8.2)
[2020-12-13 02:55] LABS: GLUCOSE 147 MG/DL (70-105)
[2020-12-13 02:57] LABS: ALKALINE PHOSPHATASE 78 U/L (40-136); BUN/CREATININE RATIO 15; CREATININE SERUM 0.75 MG/DL (0.60-1.30); GFR ESTIMATED > 60
[2020-12-13 02:58] LABS: ALANINE AMINOTRANSFERASE 18 U/L (0-55); ALBUMIN 4.2 GM/DL (3.2-4.5)
[2020-12-13 03:27] LABS: CLARITY,URINE CLEAR; COLOR,URINE YELLOW; GLUCOSE, URINE (UA) NEGATIVE (NEGATIVE); PROTEIN,URINE NEGATIVE (NEGATIVE)
[2020-12-13 03:28] LABS: BACTERIA,URINE TRACE /HPF; BILIRUBIN,URINE NEGATIVE (NEGATIVE); KETONES,URINE NEGATIVE (NEGATIVE); LEUKOCYTE ESTERASE ,URINE NEGATIVE (NEGATIVE); NITRITE,URINE NEGATIVE (NEGATIVE); RBC,URINE 0-2 /HPF; SQUAMOUS EPITHELIAL CELL,UR RARE /HPF; WBC,URINE RARE /HPF
[2020-12-13] MEDS ORDERED: ONDA4TAB11 PO (03:39)
[2020-12-13 03:43] VITALS: BP 147/75
--- NOTE | 2020-12-13 05:31 | Diagnostic Imaging Report ---
INDICATION: n/v COMPARISON: 05/10/2020 FINDINGS: Single frontal view of the chest demonstrates normal heart size and pulmonary vascularity. The lungs are well aerated and clear. No large pleural effusion or pneumothorax is seen. The visualized osseous structures show no acute abnormalities. Calcified aortic atherosclerosis and sternotomy wires are noted. IMPRESSION: 1. No acute cardiopulmonary process. Dictated by: Dictated on workstation # [id number]
== END 2020-12-13 03:44 | disposition home or self-care (01) ==
LOC: EDUNIT# 01:58 → ER FS 01:59
DX: R11.2 Nausea with vomiting, unspecified (principal); I25.2 Old myocardial infarction; E78.00 Pure hypercholesterolemia, unspecified; Z88.0 Allergy status to penicillin; Z88.5 Allergy status to narcotic agent; Z79.82 Long term (current) use of aspirin; Z79.899 Other long term (current) drug therapy
CPT/HCPCS: 36415; 74022; 80053; 81000; 83690; 84484; 85025; 93005; 93041

== ENCOUNTER → 2021-04-06 | Outpatient (CLI) | payer BC | LOC: CARD 13:12 | PROVIDERS: ATTEND Internal Medicine Cardiovascular Disease | DX: I34.0 Nonrheumatic mitral (valve) insufficiency (principal); I10 Essential (primary) hypertension | CPT/HCPCS: 93306 ==

== ENCOUNTER 2021-05-23 06:10 | Outpatient (CLI) | payer BC ==
[~2021-05-23] VITALS: Ht 160 cm; Wt 63.6 kg
[2021-05-24] MEDS ORDERED: LOSA100T57 PO (08:50)
[2021-05-24] MEDS ORDERED: ATOR80TA76 PO (08:50)
[2021-05-24] MEDS ORDERED: RANO10005 PO (08:50)
[2021-05-24] MEDS ORDERED: CLOP75TA28 PO (08:50)
[2021-05-24] MEDS ORDERED: ISOS30TA82 PO (08:50)
[2021-05-24] MEDS ORDERED: METO50TA7 PO (08:50)
== END 2021-05-24 08:51 | disposition home or self-care (01) ==
LOC: PREOP 06:10
PROVIDERS: ATTEND Specialist
DX: Z01.818 Encounter for other preprocedural examination (principal)

== ENCOUNTER 2021-05-26 10:05 | Day surgery (SDC) | payer BC ==
[~2021-05-26] VITALS: Ht 160 cm; Wt 63.6 kg
[~2021-05-26 10:05] MED LIST changes: +ATOR80TA76 PO; +CLOP75TA28 PO; +ISOS30TA82 PO; +LOSA100T57 PO; +METO50TA7 PO; +RANO10005 PO
[2021-05-26] MEDS ORDERED: POVIDONE (BETADINE) OPHTH SOLN 5% 30 ML OP ONE (10:15)
[2021-05-26] MEDS ORDERED: LIDOCAINE PF 1% 2 ML VIAL IR PRN (10:15)
[2021-05-26] MEDS ORDERED: TIMOLOL MALEATE 0.5% 5 ML (TIMOPTIC) BTL OU PRN (10:15)
[2021-05-26] MEDS ORDERED: MOXIFLOXACIN OPHTH SOLN 5 MG/ML 0.3 ML SYRINGE OP ONE (10:15)
[2021-05-26] MEDS: TETRACAINE 0.5% OPHTH SOLN 4 ML BTL (SINGLE DOSE ONLY) OU PRN ×3 (10:20→10:30)
[2021-05-26] MEDS: PHENYLEPHRINE 10% OPHTH (NEO-SYN) 5 ML BTL OU SCH ×3 (10:20→10:30)
[2021-05-26] MEDS: TROPICAMIDE 1% OPH SOLN (MYDRIACYL) 15 ML BTL OP SCH ×3 (10:21→10:30)
[2021-05-26 10:28] VITALS: BP 141/73
[2021-05-26] MEDS ORDERED: MIDAZOLAM 2 MG/2 ML (VERSED) VIAL ONE (10:34)
--- NOTE | 2021-05-26 10:49 | Ophthalmologist Pre-Op Note ---
Pre-Operative Progress Note H&P Reviewed The H&P was reviewed, patient examined and no changes noted. Date H&P Reviewed: May 26, 2021 Time H&P Reviewed: 10:48 Pre-Op Dx Cataract, Left Eye ANTWON GOETZ MD May 26, 2021 10:49
--- NOTE | 2021-05-26 11:11 | Ophthalmology Operative Report ---
Cataract removal/placement IOL PREOPERATIVE DIAGNOSIS: Cataract Left Eye POSTOPERATIVE DIAGNOSIS: Cataract Left Eye PROCEDURE: Cataract removal and placement of posterior chamber implant, left eye SURGEON: Murali Goetz ANESTHESIA: Topical with sedation COMPLICATIONS: None ESTIMATED BLOOD LOSS: Minimal DESCRIPTION OF PROCEDURE: After proper informed consent was obtained, the patient, a 81 female, was taken to the Operating Room and the left eye was anesthetized with tetracaine. The left eye was then prepped and draped in the usual manner. A wire lid speculum was placed. A paracentesis was made at the left hand position. Preservative free lidocaine was injected into the anterior chamber followed by viscoelastic. A clear corneal incision was made in the temporal position. A capsulorrhexis was preformed and the central nuclear and cortical material were removed. The posterior capsule was polished and an López 22.0 [id number] was placed into the capsular bag. The residual viscoelastic was aspirated and balanced saline solution was injected into the anterior chamber. Moxifloxacin was injected into the anterior chamber. The wound was checked and found to be water tight. The patient tolerated the procedure well without complications. MURALI GOETZ MD May 26, 2021 11:11
[2021-05-26 11:19] VITALS: BP 108/79
[2021-05-26] MEDS ORDERED: acetaZOLAMIDE ER 500 MG CAP (DIAMOX SEQUELS) PO ONE (11:30)
--- NOTE | 2021-05-26 14:04 | Anesthesia-General Post-Op ---
MAC Patient Condition Mental Status/LOC: Same as Preop Cardiovascular: Satisfactory Nausea/Vomiting: Absent Respiratory: Satisfactory Pain: Controlled Complications: Absent Post Op Complications Complications None Follow Up Care/Instructions Patient Instructions None needed. Anesthesiology Discharge Order Discharge Order Patient was seen after the procedure and she was doing well, no complaints, stable vital signs, no apparent adverse anesthesia problems. PATRICIA POWERS DO May 26, 2021 14:04
--- OUTSIDE RECORDS SUMMARY | 2021-05-29 11:05 | XMS REPORT | Clinical Summary ---
Author Author [facility] Organization [facility] Address Unknown Phone Unavailable Care Team Providers Care Screw Machine Operator Single Spindle Name Role Phone Tanya Flores PCP Source Comments Some departments are not documenting in the electronic medical record. If you d o not see the information that you expected, contact Release of Information in located within [facility] [employer] Information Management department at [phone] for further assistan ce in locating additional records.[facility] Allergies Comments Active Allergy Reactions Severity Noted Date Adhesive Tape (Rosins) RASH Medium 019 Meperidine REDNESS Low 12/14/2018 Penicillins RASH Medium 12/14/2018 Medications End Date Status Medication Sig Dispensed Refills Start Date Active aspirin 81 mg chewable Chew 81 mg by 0 tablet mouth daily. Take with food. Active atorvastatin (LIPITOR) 80 Take one 90 tablet 3 12/21/201 mg tablet tablet by 9 mouth daily. Active clopiDOGrel (PLAVIX) 75 Take one 90 tablet 3 201 mg tablet tablet by 9 mouth daily. Active losartan (COZAAR) 25 mg Take one 90 tablet 3 201 tablet tablet by 9 mouth every morning. Active losartan (COZAAR) 50 mg Take one 90 tablet 3 tablet tablet by 9 mouth at bedtime daily. Active metoprolol XL (TOPROL XL) Take one 90 tablet 3 50 mg extended release tablet by 9 tablet mouth daily. Active nitroglycerin (NITROSTAT) Place one 25 tablet 3 0.4 mg tablet tablet under 9 tongue every 5 minutes as needed for Chest Pain. Max of 3 tablets, call 911. Active LORazepam (ATIVAN) 0.5 mg Take one 15 tablet 0 tablet tablet by 9 mouth at bedtime as needed. For anxiety. Active isosorbide mononitrate SR Take three 90 tablet 3 (IMDUR) 30 mg tablets by 9 tabletIndications: Chest mouth daily. pain Active ranolazine ER (RANEXA) Take one 60 tablet 1 1,000 mg tablet tablet by 9 mouth twice daily. Active Problems Problem Noted Date Stable angina 12/20/2018 Injury of right radial artery 12/16/2018 Overview: Formatting of this note might be differ ent from the original. 12/15/18: small perforation with possibl e dissection in the distal radial artery, status post cuff pressure infla tions with still good flow in both the radial and ulnar arteries. 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 1992 - CABGx4 - multple stents since Essential hypertension 12/15/2018 Type II diabetes mellitus 12/15/2018 HLD (hyperlipidemia) 12/15/2018 CAD (coronary artery disease), [place] coronary artery 12/14/2018 Overview: Formatting of this note is different fr om the original. 1992 - CABGx4 - multple stents since 12/11/18: Cath at [facility]: coronary and bypass graft angiography, which shows extensive disease, including a hi gh grade prox SVG-LAD lesion, diffuse disease in the SVG-RCA plus sev ere anastomotic disease and distal banch disease, and multiple in-stent le sions and very severe anastomotic disease in the previously stented SVG t o the Diag system. 12/15/18: Cath by Dr. Cameron: CORONARY ANATOMY: 1. Only selective SVG, RCA, and SVG, LA D angiography were done. 2. The SVG to LAD appeared to have 50% plaque proximally with good runoff in the LAD and no intervention was done . 3. The SVG to RCA appeared to have 90% stenosis in the proximal graft. There is a stent in the mid graft that appeared to be patent. The distal anastomosis site appeared to have 80% t o 90% stenosis. The proximal graft is status post balloon angioplasty and drug-eluting stent using a 4.0 x 16 Synergy stent, postdilated with a 4.5 N C balloon up to 18 ATMs and the distal anastomosis site is status post balloon angioplasty and drug-eluting stent, 3.0 x 20 Synergy stent extending into the posterolateral branch, postdilated with 3.5 NC balloon up to 1 6 ATMS. The posterolateral branch itself appeared to have in-stent resten osis in the range of 80%, now status post balloon angioplasty and drug-eluti ng stent 2.5 x 20 Synergy stent postdilated with 2.5 NC balloon up to 1 6 ATMs with reduction of stenosis in all to 0% and very good flow distally. The jailed PDA appeared also to have very good flow with no evidence of plaque shift. CONCLUSION: 1. 90% proximal saphenous vein graft to right coronary artery stenosis status post balloon angioplasty and caridad g-eluting stent 4.0 x 16 Synergy, postdilated with a 4.5 NC balloon up to 18 ATMs. 2. The distal saphenous vein graft to r ight coronary artery has a 90% stenosis, status post balloon angioplas ty and drug-eluting stent 3.0 x 20 Synergy, postdilated with 3.5 NC balloo n up to 16 ATMs with the stent extending into the posterolateral branc h, jailing the posterior descending artery with no evidence of plaque shift into the posterior descending artery. 3. The mid posterolateral branch appear ed to have 80% in-stent restenosis, status post balloon angioplasty and caridad g-eluting stent 2.5 x 20 Synergy stent postdilated with 2.5 NC balloon u p to 16 ATMs. 4. Perforation of the brachial accessor y artery status post balloon tamponading with cuff pressure inflatio ns with no evidence of contrast extravasation at the end of the case. 5. A small perforation with possible di ssection in the distal radial artery, status post cuff pressure infla tions with still good flow in both the radial and ulnar arteries. Surgical History Surgery Date Site/Laterality Comments CORONARY ARTERY BYPASS 1992 all vein grafts GRAFT Medical History Medical History Date Comments CAD (coronary artery disease), quile[place] 12/14/2018 coronary artery Hx of CABG 12/15/2018 Essential hypertension 12/15/2018 HLD (hyperlipidemia) 12/15/2018 Social History Date Tobacco Use Types Packs/Day Years Used Former Smoker Smokeless Tobacco: Never Used Sex Assigned at Date Recorded Not on file Last Filed Vital Signs Reading Time Taken Comments Vital Sign 111/60 12/20/2018 3:42 PM CDT Blood Pressure 89 12/20/2018 3:42 PM CDT Pulse 36.3 C (97.4 F) 12/20/2018 12:00 PM CDT Temperature - - Respiratory Rate 96% 12/20/2018 3:42 PM CDT Oxygen Saturation - - Inhaled Oxygen Concentration 62.5 kg (137 lb 12.6 oz) 12/20/2018 6:00 AM CDT Weight 161 cm (5' 3.39") 12/15/2018 11:49 AM CDT Height 24.11 12/15/2018 11:49 AM CDT Body Mass Index Plan of Treatment Health Maintenance Due Date Last Done Comments MEDICARE ANNUAL WELLNESS 1941 VISIT PNEUMONIA (PPSV23) 1947 VACCINE (1 of 2 - PPSV23) DILATED EYE EXAM 1959 DTAP/TDAP VACCINES (1 - 1959 Tdap) FOOT EXAM 1959 PHYSICAL (COMPREHENSIVE) 1959 EXAM SHINGLES RECOMBINANT 1991 VACCINE (1 of 2) OSTEOPOROSIS 2006 SCREENING/MONITORING HBA1C 06/15/2019 12/14/2018 INFLUENZA VACCINE 02/05/2021 Implants Device Identifier Shelf Expiration Date Model / Serial / L ot Implanted Type Area Manufactur er Stent Stent Heart Results Not on filefrom Last 3 Months Insurance Type Payer Benefit Subscriber ID Effective Phone Address Plan / Dates Group Medicare MEDICARE MEDICARE [id number] 2006-P [phone] [address] [place] [address] PPO BCBS [place] BCBS [place] [id number] 2014- [phone] [address] EMP Present [id number] [place] [phone] Advance Directives Patient Continuous Improvement Coach Explanation Type Date Recorded Advance 12/15/2018 5:26 AM Directive/DPOA Date Inactivated Comments Code Status Date Activated 12/20/2018 6:20 PM Full Code 12/14/2018 8:14 PM Provider has discussed Code Status Yes w/Patient or Family? 12/14/2018 8:14 PM Full Code 12/14/2018 3:08 PM Provider has discussed Code Status No, more discussi on w/Patient or Family? needed Care Teams Start Date End Date Screw Machine Operator Single Spindle Relationship Specialty 12/14/18 [facility] PCP - General [address] [place] [address]
== END 2021-05-26 11:19 | disposition home or self-care (01) ==
LOC: SDC 10:05
PROVIDERS: ATTEND Specialist
DX: H25.12 Age-related nuclear cataract, left eye (principal); I10 Essential (primary) hypertension; I25.10 Atherosclerotic heart disease of native coronary artery without angina pectoris; E78.00 Pure hypercholesterolemia, unspecified; Z79.899 Other long term (current) drug therapy; Z79.02 Long term (current) use of antithrombotics/antiplatelets; Z87.891 Personal history of nicotine dependence

== ENCOUNTER 2021-06-09 08:48 | Day surgery (SDC) | payer BC ==
[~2021-06-09] VITALS: Ht 160 cm; Wt 63.6 kg
[2021-06-09] MEDS ORDERED: LIDOCAINE PF 1% 2 ML VIAL IR PRN (09:00)
[2021-06-09] MEDS ORDERED: POVIDONE (BETADINE) OPHTH SOLN 5% 30 ML OP ONE (09:00)
[2021-06-09] MEDS ORDERED: MOXIFLOXACIN OPHTH SOLN 5 MG/ML 0.3 ML SYRINGE OP ONE (09:00)
[2021-06-09] MEDS ORDERED: TIMOLOL MALEATE 0.5% 5 ML (TIMOPTIC) BTL OU PRN (09:00)
[2021-06-09] MEDS: TETRACAINE 0.5% OPHTH SOLN 4 ML BTL (SINGLE DOSE ONLY) OU PRN ×4 (09:01→09:22)
[2021-06-09] MEDS: TROPICAMIDE 1% OPH SOLN (MYDRIACYL) 15 ML BTL OP SCH ×3 (09:10→09:22)
[2021-06-09] MEDS: PHENYLEPHRINE 10% OPHTH (NEO-SYN) 5 ML BTL OU SCH ×3 (09:11→09:22)
[2021-06-09 09:12] VITALS: BP 135/76
--- NOTE | 2021-06-09 09:32 | Ophthalmologist Pre-Op Note ---
Pre-Operative Progress Note H&P Reviewed The H&P was reviewed, patient examined and no changes noted. Date H&P Reviewed: Jun 09, 2021 Time H&P Reviewed: 09:32 Pre-Op Dx Cataract, Right Eye ANTWON GOETZ MD Jun 09, 2021 09:32
[2021-06-09] MEDS ORDERED: MIDAZOLAM 2 MG/2 ML (VERSED) VIAL ONE (09:37)
--- NOTE | 2021-06-09 09:53 | Ophthalmology Operative Report ---
Cataract removal/placement IOL PREOPERATIVE DIAGNOSIS: Cataract Right Eye POSTOPERATIVE DIAGNOSIS: Cataract Right Eye PROCEDURE: Cataract removal and placement of posterior chamber implant, right eye SURGEON: Murali Goetz ANESTHESIA: Topical with sedation COMPLICATIONS: None ESTIMATED BLOOD LOSS: Minimal DESCRIPTION OF PROCEDURE: After proper informed consent was obtained, the patient, a 81 female, was taken to the Operating Room and the right eye was anesthetized with tetracaine. The right eye was then prepped and draped in the usual manner. A wire lid speculum was placed. A paracentesis was made at the left hand position. Preservative free lidocaine was injected into the anterior chamber followed by viscoelastic. A clear corneal incision was made in the temporal position. A capsulorrhexis was preformed and the central nuclear and cortical material were removed. The posterior capsule was polished and López 22.5 [id number] IOL was placed into the capsular bag. The residual viscoelastic was aspirated and balanced saline solution was injected into the anterior chamber. Moxifloxacin was injected into the anterior chamber. The wound was checked and found to be water tight. The patient tolerated the procedure well without complications. MURALI GOETZ MD Jun 09, 2021 09:53
[2021-06-09 10:01] VITALS: BP 139/75
[2021-06-09] MEDS ORDERED: acetaZOLAMIDE ER 500 MG CAP (DIAMOX SEQUELS) PO ONE (12:30)
--- NOTE | 2021-06-09 12:43 | Anesthesia-General Post-Op ---
MAC Patient Condition Mental Status/LOC: Same as Preop Cardiovascular: Satisfactory Nausea/Vomiting: Absent Respiratory: Satisfactory Pain: Controlled Complications: Absent Post Op Complications Complications None Follow Up Care/Instructions Patient Instructions None needed. Anesthesiology Discharge Order Discharge Order Patient is doing well, no complaints, stable vital signs, no apparent adverse anesthesia problems. No complications reported per nursing. DAYO PHILIP CRNA Jun 09, 2021 12:42
== END 2021-06-09 10:01 | disposition home or self-care (01) ==
LOC: SDC 08:48
PROVIDERS: ATTEND Specialist
DX: H25.11 Age-related nuclear cataract, right eye (principal); I25.10 Atherosclerotic heart disease of native coronary artery without angina pectoris; I10 Essential (primary) hypertension; E78.5 Hyperlipidemia, unspecified; E78.00 Pure hypercholesterolemia, unspecified; Z87.891 Personal history of nicotine dependence; Z95.1 Presence of aortocoronary bypass graft; Z90.89 Acquired absence of other organs

== ENCOUNTER → 2022-10-30 | Outpatient (CLI) | payer BC | LOC: CARDFS 09:34 | PROVIDERS: ATTEND Internal Medicine Cardiovascular Disease | DX: I08.0 Rheumatic disorders of both mitral and aortic valves (principal); I25.10 Atherosclerotic heart disease of native coronary artery without angina pectoris | CPT/HCPCS: 93306 ==

== ENCOUNTER → 2022-11-21 | Outpatient (CLI) | payer BC ==
[~2022-11-21] MED LIST changes: +CATHETER FLUSH 10 ML SYR IVP PRN; +REGADENOSON 0.4 MG/5 ML SYR (LEXISCAN) IV ONE
[2022-11-21 13:00] VITALS: BP 151/79
--- NOTE | 2022-11-21 14:47 | Cardiology Stress Test Report ---
Stress Test Report Date of Procedure/Referring: Date of Procedure: November 21, 2022 PCP Natalia Lucio DO Admitting Physician Admitting Physician: Attending Physician: Amelia Olguin MD Baseline Heart Rate: 59 Baseline Blood Pressure: Blood Pressure Systolic: 151 Blood Pressure Diastolic: 79 Baseline Vitals Vital Signs Date Time Temp Pulse Resp B/P (MAP) Pulse Ox O2 Delivery O2 Flow Rate FiO2 11/21/22 13:00 57 151/79 (103) Baseline EKG: Baseline EKG: NSR Summary After explaining the procedure to the patient, she signed a consent and then brought to the stress nuclear laboratory. Patient received 0.4 mg Lexiscan for stress test, ECG, heart rate and blood pressure were monitored continuously. Resting and stress dose of radio tracer were injected, imaging was acquired and reviewed in short axis, horizontal long axis and vertical long axis views. TID: 1.12 SSS: 8 SDS: 6 EF: 68 Patient tolerated Lexiscan well Reversible ischemia involving the inferior wall and inferolateral wall Normal left ventricular size, ejection fraction 68% Copy Copies To 1: NATALIA LUCIO BASHAR J MD November 21, 2022 14:47
== END ==
LOC: CARD 10:55
PROVIDERS: ATTEND Internal Medicine Cardiovascular Disease
DX: I25.10 Atherosclerotic heart disease of native coronary artery without angina pectoris (principal)
CPT/HCPCS: 78452; 93017